=== PATIENT | female | born 1950 | race African-American/Black ===

== ENCOUNTER 2016-12-26 10:38 | Emergency (ER) | payer OTHER, MEDICAID ==
[2016-12-26 10:58] VITALS: BP 147/81; BMI 39.8
--- NOTE | 2016-12-26 11:20 | DR.GENAD ---
HPI - PCP Primary Care Physician: ben - HPI Comment HPI Comment: PATIENT SAID SHE WAS NOT ABLE TO GET OUT OF BED TODAY. SHE DID NOT LOOSE CONSCIOUSNESS. SHE IS DUE DIALYSIS TODAY. - Complaint/Symptoms Chief Complaint Doctors Comments: PATIENT FELL AT HOME LAST NIGHT IN THE SHOWER. PAIN LOWER EXTREMITIES, LOWER BACK, AND HEADACHE. Chief Complaint:: patient stated she fell in the shower yesterday and fell this morning so she called 911 this morning for ems to come and get her. patient has a dyalisis appointment today at 1130 - Nurses notes reviewed Nurses Notes Review: Yes - Source History Provided: Patient - Mode of Arrival Mode of Arrival: EMS - Timing Onset of Chief Complaint: 12/25/16 Came on: Suddenly - Duration Duration: Constant Duration: Hours - Severity Severity: Moderate PMH - PMH Past Medical History: Yes Past Medical History: Arthritis, CHF, Diabetes, Dialysis, Hypertension, Renal Disease Past Surgical History: Yes Surgical History: Hysterectomy - Family History History of Family Medical Conditions: Yes Family Medical History: Diabetes Mellitus, Cancer, [place], Hypertension - Social History Does patient currently use any type of tobacco product: No Have you used tobacco products in the last 12 months: No Type of Tobacco Use: None Does any household member use tobacco: No Alcohol Use: None Do you use any recreational Drugs:: No Lives With: Family Lives Where: Home - infectious screening In the last 2 months have you had wt loss of >10#?: NO Have you had fever, night sweats or hemotysis?: No Have you traveled outside the country in the last 6 months?: No Isolation: Standard ROS - Review of Systems Constitutional: Weakness, Fatigue. negative: Chills, Fever Eyes: No Symptoms Reported. negative: Eye Pain, Blurred Vision, Discharge ENTM: No Symptoms Reported. negative: Ear Pain, Nose Discharge, Nose Congestion , Throat Pain Respiratoy: Non-Productive Cough, Short of Breath. negative: Wheezing, Hemoptysis Cardiovascular: Edema. negative: Chest Pain Gastrointestinal/Abdominal: negative: Abdominal Pain, Nausea, Vomiting Genitourinary: Other (DECREASE URINATION DUE TO ESRD.). negative: Dysuria, Frequency, Hematuria Neurological: Headache, Weakness, Dizziness, Problems Walking Musculoskeletal: Back Pain, Right, Left, Pelvis, Hip, Leg, Knee, Ankle, Foot Integumentary: Change in Color, Bruises Hematologic/Lymphatic: Easy Bruising Endocrine: negative: Flushing, Increased Thirst, Increased Urine All Other Systems: Reviewed and Negative PE - Vital Signs Vitals: Temperature 98.7 F Pulse Rate 90 Respiratory Rate 18 Blood Pressure [Left Arm] 138/57 Blood Pressure 147/81 O2 Sat by Pulse Oximetry 100 - General Limitations: No Limitations General Appearance: Alert - Head Head Exam: Atraumatic - Eyes Eye exam: PERRL, EOMI. negative: Scleral Icterus, Conjunctival Injection, Periorbital Swelling, Periorbital Tenderness - ENT ENT Exam: Normal External Ear Exam External Ear Exam: Normal External Inspection TM/Canal Exam: Bilateral Normal Nose Exam: Normal Nose Exam Mouth Exam: Normal Inspection Throat Exam: Normal Inspection - Neck Neck Exam: Trachea Midline. negative: Tenderness, Meningismus, Lymphadenopathy - Chest Chest Inspection: Symmetric Chest Wall Rise - Respiratory Respiratory Exam: Respiratory Distress (MILD PATIENT ON HOME OXYGEN). negative : Chest Wall Tenderness Respiratory Exam: Bilateral Rhonchi, Lower Rhonchi - Cardiovascular Cardiovascular Exam: Regular Rate, Normal Rhythm, Normal Heart Sounds - Abdominal Exam Abdominal Exam: Normal Bowel Sounds, Soft. negative: Tenderness - Extremities Extremities Exam: Tenderness (LOWER EXTREMITIES TENDER), Edema - Back Back Exam: Paraspinal Tenderness (LOWER BACK) - Neurologic Neurological Exam: Alert, Oriented X3 - Psychiatric Psychiatric Exam: Normal Affect, Normal Mood - Skin Skin Exam: Erythema MDM - Additional Information Additional Information Obtained From: Family - Differential Diagnosis Differential Diagnosis: MULTIPLE CONTUSION AND SPRAIN, CLOSE HEAD YRAUMA, FRACTURE, WEAKNESS Course - Treatment Treatment: SEE ORDERS. - Education/Counseling Education/Counseling: Patient, Family, Education Educated On: Diagnosis, Needs for Follow Up ROR - Labs Reviewed Laboratory Results Reviewed?: Yes Result Diagrams: 12/26/16 11:55 12/26/16 11:55 Laboratory: WBC 4.6 X10^3/uL (3.6-10.0) 12/26/16 11:55 RBC 3.70 X10^6/uL (3.5-5.4) 12/26/16 11:55 Hgb 10.8 g/dL (12.0-16.0) L 12/26/16 11:55 Hct 33.3 % (36.0-47.0) L 12/26/16 11:55 MCV 90.2 fL (80.0-100.0) 12/26/16 11:55 MCH 29.2 pg (27.0-34.0) 12/26/16 11:55 MCHC 32.4 g/dL (33.0-35.0) L 12/26/16 11:55 RDW 14.9 % (11.6-16.5) 12/26/16 11:55 Plt Count 102 X10^3/uL (150.0-450.0) L 12/26/16 11:55 MPV 9.1 fL (7.4-11.0) 12/26/16 11:55 Neut % 80.6 % (42.0-75.0) H 12/26/16 11:55 Lymph % 8.6 % (21.0-51.0) L 12/26/16 11:55 [place] % 7.7 % (0.0-13.0) 12/26/16 11:55 Eos % 2.6 % (0.9-2.9) 12/26/16 11:55 Baso % 0.5 % (0.2-1.0) 12/26/16 11:55 Neut # 3.7 x10^3/uL (2.2-4.8) 12/26/16 11:55 Lymph # 0.4 X10^3/uL (1.3-2.9) L 12/26/16 11:55 [place] # 0.4 x10^3/uL (0.3-0.8) 12/26/16 11:55 Eos # 0.1 x10^3/uL (0.0-0.2) 12/26/16 11:55 Baso # 0.0 X10^3/uL (0.0-0.1) 12/26/16 11:55 Absolute Nucleated RBC 0.1 /100WBC 12/26/16 11:55 Sodium 139 mmol/L (136-145) 12/26/16 11:55 Corrected Sodium TNP 12/26/16 11:55 Potassium 5.1 mmol/L (3.5-5.1) 12/26/16 11:55 Chloride 100 mmol/L (98-107) 12/26/16 11:55 Carbon Dioxide 22.7 mmol/L (21-32) 12/26/16 11:55 BUN 64 mg/dL (7-18) H 12/26/16 11:55 Creatinine 12.82 mg/dL (0.55-1.02) H 12/26/16 11:55 Est GFR (MDRD) Af Amer 4 (>60) L 12/26/16 11:55 Est GFR (MDRD) Non-Af 3 (>60) L 12/26/16 11:55 Glucose 109 mg/dL (65-99) H 12/26/16 11:55 Calcium 8.2 mg/dL (8.5-10.1) L 12/26/16 11:55 Corrected Calcium TNP 12/26/16 11:55 Total Bilirubin 0.30 mg/dL (0.2-1.0) 12/26/16 11:55 AST 6 Units/L (15-37) L 12/26/16 11:55 ALT 18 Units/L (12-78) 12/26/16 11:55 Alkaline Phosphatase 52 Units/L (46-116) 12/26/16 11:55 Total Protein 7.6 g/dL (6.4-8.2) 12/26/16 11:55 Albumin 3.5 g/dL (3.4-5.0) 12/26/16 11:55 Globulin 4.1 g/dL (2.5-4.5) 12/26/16 11:55 Albumin/Globulin Ratio 0.9 Ratio (1.1-2.1) L 12/26/16 11:55 - XRAY XRAY Interpreted by: Radiologist XRAY Findings: REPORT DISCUSS WITH PATIENT AND FAMIOLY. - Diagnosis Discharge Problem: Multiple contusions, Multiple sprains, Muscle strain, multiple sites, Generalized weakness Headache, post-traumatic Qualifiers: Headache chronicity pattern: acute headache Intractability: not intractable Qualified Code(s): G44.319 - Acute post-traumatic headache, not intractable - Discharge Plan Disposition: 01 HOME, SELF-CARE Condition: Stable - Follow ups/Referrals Follow ups/Referrals: KAILEY BENJAMIN [Primary Care Provider] - 2 days - Instructions Instructions: Lumbosacral Strain, Muscle Strain, Musculoskeletal Pain Additional Instructions: RETURN TO ED IF WORSE. CONTINUE TRAMADOL FOR PAIN THAT YOU HAVE AT HOME.
[2016-12-26 12:08] LABS: BASOPHILS % (AUTO) 0.5 % (0.2-1.0); EOSINOPHILS # (AUTO) 0.1 x10^3/uL (0.0-0.2); EOSINOPHILS % (AUTO) 2.6 % (0.9-2.9); HEMATOCRIT 33.3 % (36.0-47.0); HEMOGLOBIN 10.8 g/dL (12.0-16.0); LYMPHOCYTES # (AUTO) 0.4 X10^3/uL (1.3-2.9); LYMPHOCYTES % (AUTO) 8.6 % (21.0-51.0); MEAN CORPUSCULAR HEMOGLOBIN 29.2 pg (27.0-34.0); MEAN CORPUSCULAR HGB CONC 32.4 g/dL (33.0-35.0); MEAN CORPUSCULAR VOLUME 90.2 fL (80.0-100.0); MEAN PLATELET VOLUME 9.1 fL (7.4-11.0); MONOCYTES # (AUTO) 0.4 x10^3/uL (0.3-0.8); MONOCYTES % (AUTO) 7.7 % (0.0-13.0); NEUTROPHILS # (AUTO) 3.7 x10^3/uL (2.2-4.8); NEUTROPHILS % (AUTO) 80.6 % (42.0-75.0); PLATELET COUNT 102 X10^3/uL (150.0-450.0); RED CELL DISTRIBUTION WIDTH 14.9 % (11.6-16.5); WHITE BLOOD COUNT 4.6 X10^3/uL (3.6-10.0)
[2016-12-26 12:22] LABS: ALANINE AMINOTRANSFERASE 18 Units/L (12-78); ALBUMIN 3.5 g/dL (3.4-5.0); ALKALINE PHOSPHATASE 52 Units/L (46-116); ASPARTATE AMINO TRANSFERASE 6 Units/L (15-37); BLOOD UREA NITROGEN 64 mg/dL (7-18); CALCIUM 8.2 mg/dL (8.5-10.1); CARBON DIOXIDE 22.7 mmol/L (21-32); CHLORIDE 100 mmol/L (98-107); CREATININE 12.82 mg/dL (0.55-1.02); GLUCOSE 109 mg/dL (65-99); SODIUM 139 mmol/L (136-145); TOTAL PROTEIN 7.6 g/dL (6.4-8.2); eGFR BLACK RACES 4 (>60); eGFR NON BLACK RACES 3 (>60)
--- NOTE | 2016-12-26 12:42 | CT ---
HISTORY: Head injury, fall Study: CT head without contrast Comparison: November 26, 2014 Technique: Axial non contrast images with coronal and sagittal reformats. Dose reduction procedures were used with MA/kv adjusted for body size. Findings: The ventricles are normal in size, shape, and position. There is decreased attenuation in the perive ntricular white matter suggestive of small vessel vascular disease. There is no definite evidence fo r recent or remote CVA, hemorrhage, or extra-axial fluid collection. In the right frontal region the re is a dense meningeal calcification measuring 6.6 millimeters and likely representing a densely ca lcified meningioma contributing no mass-effect. Additionally in the left occipital region there is a densely calcified nodule measuring 4.9 millimeters also likely a stable densely calcified meningiom a not contributing significant mass-effect. No significant mass lesions are identified. Once again n oted is ophthalmic vein dilatation and proptosis unchanged from the prior examination. Those sinuses visualized were clear. IMPRESSION: No acute intracranial abnormality Diffuse small vessel vascular disease. Sub centimeter densely calcified benign meningiomas in the right frontal and left occipital regions measuring only 6.6 and 4.9 millimeters respectively. These are likely not clinically significant. Proptosis bilaterally unchanged from the prior examination and of uncertain significance. Ophthalmol ogy evaluation may be indicated. Reported By:
--- NOTE | 2016-12-26 12:47 | RAD ---
HISTORY: Injury, fall, hip pain Study: AP pelvis Comparison: None Findings: A single frontal view of the pelvis demonstrates the pelvic ring to be intact. The SI joints are gr ossly unremarkable. The visualized portion of the right and left hip are normal in their appearance . No significant soft tissue abnormalities can be identified. IMPRESSION: 1. Negative exam. Reported By:
--- NOTE | 2016-12-26 12:48 | RAD ---
HISTORY: Injury, fall, low back pain Study: AP and lateral lumbar spine Comparison: None Findings: The alignment is normal. The vertebral bodies are of average height. No compression fractures are id entified. The disc spaces are preserved. The pedicles are intact. The SI joints are normal. IMPRESSION: No significant abnormality identified Reported By:
--- NOTE | 2016-12-26 12:49 | RAD ---
HISTORY: Injury, fall Study: Right femur two view Comparison: None Findings: No acute cortical disruption or dislocation can be identified. The femoral head and neck are unrema rkable in their appearance. No significant soft tissue swelling or injury can be seen. IMPRESSION: 1. Negative exam of the femur. Reported By:
--- NOTE | 2016-12-26 12:51 | RAD ---
HISTORY: Injury, fall, right leg pain Study: Right tibia and fibula two view Comparison: None Findings: Positioning is sub optimal. There is no definite evidence for fracture, lytic, or blastic lesion. No soft tissue abnormality or abnormal periosteal reaction is identified. IMPRESSION: No significant abnormality identified Reported By:
--- NOTE | 2016-12-26 12:54 | RAD ---
HISTORY: Injury, fall, left lower extremity pain Study: Left tibia and fibula two view Comparison: None Findings: The tibia and fibula are intact. No abnormal periosteal reaction or soft tissue abnormality is ident ified. There is ossification at the insertion of the Achilles tendon onto the calcaneus. There is a question of a fracture of this spur visualized best on the nonstandard AP view. This could be artifa ctual and due to rotation, however. Clinical correlation as to the presence of point tenderness over the insertion of the Achilles tendon should be helpful. IMPRESSION: Intact tibia and fibula Questionable fracture of a calcaneal spur at the insertion of the Achilles tendon. See recommendatio n as above Reported By:
--- NOTE | 2016-12-26 13:37 | RAD ---
Left femur-four views Indication: Fall with left leg pain. Findings: Partially visualized left knee joint shows degenerative change. Left hip is partially visu christy also show degenerative change. Impression: No displaced left femur fracture. Degenerative changes present. Reported By:
== END 2016-12-26 14:08 | disposition home or self-care (01) ==
LOC: ER 10:38
DX: T07 Unspecified multiple injuries (principal); T14.8 Other injury of unspecified body region; S39.012A Strain of muscle, fascia and tendon of lower back, initial encounter; R53.1 Weakness; G44.319 Acute post-traumatic headache, not intractable; W19.XXXA Unspecified fall, initial encounter; Y92.009 Unspecified place in unspecified non-institutional (private) residence as the place of occurrence of the external cause
CPT/HCPCS: 36415; 70450; 72100; 72170; 73552; 73590; 80053; 85025; 99283

== ENCOUNTER 2016-12-26 19:53 | Inpatient (IN) | payer OTHER, MEDICAID ==
--- NOTE | 2016-12-26 20:53 | DR.GENAD ---
HPI - PCP Primary Care Physician: JL - HPI Comment HPI Comment: PATIENT HERE VIA EMS FOR GENERALIZE WEAKNESS, FEVER AND CHILLS. CAME HOME FROM DIALYSIS AND STARTED HAVING CHILLS. SHE FELL AND CAME TO ED THIS AM. XRAY AND BLOOD WORK DONE. D/C HOME. DID HE DIALYSIS TODAY. - Complaint/Symptoms Chief Complaint Doctors Comments: FEVER, CHILLS AND GENERALIZE WEAKNESS. Chief Complaint:: EMS RESPONDED TO CALL FOR CHILLS. PATIENT BROUGHT IN BY EMS, C /O CHILLS , AND WEAKNESS. PATIENT WAS SEEN THIS AM, DISCHARGED AND WENT TO DIALYSIS. - Nurses notes reviewed Nurses Notes Review: Yes - Source History Provided: Patient, EMS - Mode of Arrival Mode of Arrival: EMS - Timing Onset of Chief Complaint: 12/26/16 Came on: Suddenly - Duration Duration: Constant Duration: Hours - Severity Severity: Moderate PMH - PMH Past Medical History: Yes Past Medical History: Arthritis, CHF, Diabetes, Dialysis, Hypertension, Renal Disease Past Surgical History: Yes Surgical History: Hysterectomy - Family History History of Family Medical Conditions: Yes Family Medical History: Diabetes Mellitus, Cancer, [place], Hypertension - Social History Does patient currently use any type of tobacco product: No Have you used tobacco products in the last 12 months: No Type of Tobacco Use: None Does any household member use tobacco: No Alcohol Use: None Do you use any recreational Drugs:: No Lives Where: Home - infectious screening Have you traveled outside the country in the last 6 months?: No Isolation: Standard ROS - Review of Systems Constitutional: Chills, Fever, Malaise, Weakness, Fatigue Eyes: No Symptoms Reported. negative: Eye Pain, Discharge ENTM: No Symptoms Reported. negative: Ear Pain, Nose Discharge, Nose Congestion , Throat Pain Respiratoy: Non-Productive Cough, Short of Breath, Wheezing. negative: Productive Cough, Hemoptysis Cardiovascular: No Symptoms Reported. negative: Chest Pain Gastrointestinal/Abdominal: No Symptoms Reported. negative: Constipation, Diarrhea, Nausea Genitourinary: No Symptoms Reported. negative: Dysuria, Frequency, Hematuria Neurological: Headache, Weakness, Dizziness, Problems Walking Musculoskeletal: Muscle Pain Integumentary: No Symptoms Reported Hematologic/Lymphatic: No Symptoms Reported Endocrine: negative: Flushing, Increased Thirst, Increased Urine All Other Systems: Reviewed and Negative PE - Vital Signs Vitals: Temperature 100.3 F Pulse Rate [Left Brachial] 92 Pulse Rate 100 Respiratory Rate 22 Blood Pressure [Left Arm] 142/71 Blood Pressure 149/60 O2 Sat by Pulse Oximetry 100 - General Limitations: No Limitations General Appearance: Alert - Head Head Exam: Normal Inspection - Eyes Eye exam: Normal Appearance - ENT ENT Exam: Normal External Ear Exam External Ear Exam: Normal External Inspection TM/Canal Exam: Bilateral Normal Nose Exam: Normal Nose Exam Mouth Exam: Normal Inspection Throat Exam: Normal Inspection - Neck Neck Exam: Trachea Midline - Chest Chest Inspection: Symmetric Chest Wall Rise - Respiratory Respiratory Exam: Normal Lung Sounds Bilat Respiratory Exam: Bilateral Wheezing, Bilateral Rhonchi, Lower Wheezing, Lower Rhonchi - Cardiovascular Cardiovascular Exam: Regular Rate, Normal Rhythm, Normal Heart Sounds - Abdominal Exam Abdominal Exam: Normal Bowel Sounds, Soft. negative: Tenderness - Back Back Exam: Tenderness - Neurologic Neurological Exam: Alert, Oriented X3 - Psychiatric Psychiatric Exam: Anxious - Skin Skin Exam: Normal Color MDM - Additional Information Additional Information Obtained From: Family - Differential Diagnosis Differential Diagnosis: GENERALIZE WEAKNESS, UTI, PNEUMONIA, BRONCHITIS, Course - Treatment Treatment: SEE ORDERS. - Consultation Consultation Comments: DISCUSS PATIENT WITH DR. HILL. HE WILL ADMIT PATIENT. - Education/Counseling Education/Counseling: Patient, Family, Education Educated On: Treatment, Diagnosis ROR - Labs Reviewed Laboratory Results Reviewed?: Yes Result Diagrams: 12/27/16 06:10 12/27/16 06:10 Laboratory: 12/26/16 21:35 Blood Blood Culture - Preliminary 12/26/16 21:15 Blood Blood Culture - Preliminary WBC 3.5 X10^3/uL (3.6-10.0) L 12/27/16 06:10 RBC 3.53 X10^6/uL (3.5-5.4) 12/27/16 06:10 Hgb 10.4 g/dL (12.0-16.0) L 12/27/16 06:10 Hct 31.7 % (36.0-47.0) L 12/27/16 06:10 MCV 89.9 fL (80.0-100.0) 12/27/16 06:10 MCH 29.6 pg (27.0-34.0) 12/27/16 06:10 MCHC 33.0 g/dL (33.0-35.0) 12/27/16 06:10 RDW 15.0 % (11.6-16.5) 12/27/16 06:10 Plt Count 94 X10^3/uL (150.0-450.0) L 12/27/16 06:10 MPV 9.4 fL (7.4-11.0) 12/27/16 06:10 Neut % 76.0 % (42.0-75.0) H 12/27/16 06:10 Lymph % 12.1 % (21.0-51.0) L 12/27/16 06:10 [place] % 9.9 % (0.0-13.0) 12/27/16 06:10 Eos % 1.2 % (0.9-2.9) 12/27/16 06:10 Baso % 0.8 % (0.2-1.0) 12/27/16 06:10 Neut # 2.7 x10^3/uL (2.2-4.8) 12/27/16 06:10 Lymph # 0.4 X10^3/uL (1.3-2.9) L 12/27/16 06:10 [place] # 0.4 x10^3/uL (0.3-0.8) 12/27/16 06:10 Eos # 0.0 x10^3/uL (0.0-0.2) 12/27/16 06:10 Baso # 0.0 X10^3/uL (0.0-0.1) 12/27/16 06:10 Absolute Nucleated RBC 0.1 /100WBC 12/27/16 06:10 INR Target Range - 12/27/16 06:10 INR 1.15 (0.8-1.3) 12/27/16 06:10 PTT 32.6 SECONDS (22.9-36.5) 12/27/16 06:10 PTT Comment - 12/27/16 06:10 Sodium 140 mmol/L (136-145) 12/27/16 06:10 Corrected Sodium 140 mmol/L (136-145) 12/27/16 06:10 Potassium 4.0 mmol/L (3.5-5.1) 12/27/16 06:10 Chloride 98 mmol/L (98-107) 12/27/16 06:10 Carbon Dioxide 30.2 mmol/L (21-32) 12/27/16 06:10 BUN 32 mg/dL (7-18) H 12/27/16 06:10 Creatinine 8.69 mg/dL (0.55-1.02) H 12/27/16 06:10 Est GFR (MDRD) Af Amer 6 (>60) L 12/27/16 06:10 Est GFR (MDRD) Non-Af 5 (>60) L 12/27/16 06:10 Glucose 118 mg/dL (65-99) H 12/27/16 06:10 Calcium 7.7 mg/dL (8.5-10.1) L 12/27/16 06:10 Corrected Calcium 8.3 mg/dL (8.5-10.1) L 12/27/16 06:10 Magnesium 1.9 mg/dL (1.7-2.9) 12/27/16 06:10 Total Bilirubin 0.40 mg/dL (0.2-1.0) 12/27/16 06:10 AST 11 Units/L (15-37) L 12/27/16 06:10 ALT 19 Units/L (12-78) 12/27/16 06:10 Alkaline Phosphatase 45 Units/L (46-116) L 12/27/16 06:10 Creatine Kinase 173 Units/L (26-192) 12/27/16 11:58 CK-MB (CK-2) 1.2 ng/mL (0-4.0) 12/27/16 11:58 CK/CKMB % Calc 0.7 % (<4) 12/27/16 11:58 Troponin I 0.02 ng/mL (0-1.5) 12/27/16 11:58 Total Protein 7.5 g/dL (6.4-8.2) 12/27/16 06:10 Albumin 3.3 g/dL (3.4-5.0) L 12/27/16 06:10 Globulin 4.2 g/dL (2.5-4.5) 12/27/16 06:10 Albumin/Globulin Ratio 0.8 Ratio (1.1-2.1) L 12/27/16 06:10 Triglycerides 169 mg/dL (0-150) H 12/27/16 06:10 Cholesterol 148 mg/dL (0-200) 12/27/16 06:10 LDL Cholesterol, Calc 82 mg/dL (0-100) 12/27/16 06:10 HDL Cholesterol 32 mg/dL (40-60) L 12/27/16 06:10 Cholesterol/HDL Ratio 4.6 (0.0-5.0) 12/27/16 06:10 Specimen Type Clean catch urine 12/27/16 19:38 Urine Color Yellow (YELLOW) 12/27/16 19:38 Urine Appearance Hazy (CLEAR) 12/27/16 19:38 Urine pH 5.0 (5.0 - 8.0) 12/27/16 19:38 Ur Specific [place] 1.020 (1.000-1.030) 12/27/16 19:38 Urine Protein 4+ (NEGATIVE) 12/27/16 19:38 Urine Glucose (UA) Negative (NEGATIVE) 12/27/16 19:38 Urine Ketones Negative (NEGATIVE) 12/27/16 19:38 Urine Occult Blood 5+ (NEGATIVE) 12/27/16 19:38 Urine Nitrite Negative (NEGATIVE) 12/27/16 19:38 Urine Bilirubin Negative (NEGATIVE) 12/27/16 19:38 Urine Urobilinogen Normal (NORMAL) 12/27/16 19:38 Ur Leukocyte Esterase 3+ (NEGATIVE) 12/27/16 19:38 Urine RBC 25-50 /HPF (NEGATIVE) 12/27/16 19:38 Urine WBC 6-10 /HPF (NEGATIVE) 12/27/16 19:38 Ur Squamous Epith Cells Few /HPF (NEGATIVE) 12/27/16 19:38 Urine Bacteria Trace /HPF (NEGATIVE) 12/27/16 19:38 Ur Culture Indicated? No/not indicated 12/27/16 19:38 Influenza A (H1N1) PCR Not detected (NOT DETECT) 12/27/16 10:17 Influenza Type A (PCR) Positive (NEGATIVE) A 12/27/16 10:17 Influenza Type B (PCR) Negative (NEGATIVE) 12/27/16 10:17 - XRAY XRAY Interpreted by: Radiologist XRAY Findings: REPORT NOTED - EKG Rhythm: NSR (EKG NOTED) - Diagnosis Discharge Problem: Generalized weakness, Chills Fever Qualifiers: Fever type: due to other condition Qualified Code(s): R50.81 - Fever presenting with conditions classified elsewhere - Discharge Plan Disposition: 09 ADMITTED INPATIENT Condition: Stable - Follow ups/Referrals - Instructions
[2016-12-26 21:00] LABS: BASOPHILS % (AUTO) 0.4 % (0.2-1.0); EOSINOPHILS # (AUTO) 0.1 x10^3/uL (0.0-0.2); EOSINOPHILS % (AUTO) 1.7 % (0.9-2.9); HEMATOCRIT 37.9 % (36.0-47.0); HEMOGLOBIN 12.4 g/dL (12.0-16.0); LYMPHOCYTES # (AUTO) 0.4 X10^3/uL (1.3-2.9); LYMPHOCYTES % (AUTO) 8.2 % (21.0-51.0); MEAN CORPUSCULAR HEMOGLOBIN 29.6 pg (27.0-34.0); MEAN CORPUSCULAR HGB CONC 32.7 g/dL (33.0-35.0); MEAN CORPUSCULAR VOLUME 90.5 fL (80.0-100.0); MEAN PLATELET VOLUME 9.6 fL (7.4-11.0); MONOCYTES # (AUTO) 0.3 x10^3/uL (0.3-0.8); MONOCYTES % (AUTO) 7.4 % (0.0-13.0); NEUTROPHILS # (AUTO) 3.7 x10^3/uL (2.2-4.8); NEUTROPHILS % (AUTO) 82.3 % (42.0-75.0); PLATELET COUNT 121 X10^3/uL (150.0-450.0); RED BLOOD COUNT 4.19 X10^6/uL (3.5-5.4); RED CELL DISTRIBUTION WIDTH 15.1 % (11.6-16.5); WHITE BLOOD COUNT 4.5 X10^3/uL (3.6-10.0)
[2016-12-26 21:12] LABS: BLOOD UREA NITROGEN 27 mg/dL (7-18); CALCIUM 8.4 mg/dL (8.5-10.1); CARBON DIOXIDE 30.9 mmol/L (21-32); CHLORIDE 97 mmol/L (98-107); CREATININE 7.15 mg/dL (0.55-1.02); GLUCOSE 110 mg/dL (65-99); SODIUM 141 mmol/L (136-145); TROPONIN I < 0.02 ng/mL (0-1.5); eGFR BLACK RACES 7 (>60); eGFR NON BLACK RACES 6 (>60)
[2016-12-26 21:16] LABS: ALANINE AMINOTRANSFERASE 24 Units/L (12-78); ALBUMIN 4.1 g/dL (3.4-5.0); ALKALINE PHOSPHATASE 60 Units/L (46-116); ASPARTATE AMINO TRANSFERASE 11 Units/L (15-37); CKMB % 0.8 % (<4); CREATINE KINASE 146 Units/L (26-192); CREATINE KINASE MB 1.1 ng/mL (0-4.0); TOTAL PROTEIN 8.9 g/dL (6.4-8.2)
[2016-12-26] MEDS ORDERED: ROCEPHIN VIAL 1 GM 1 GM in NS 50 ML IV + SPIKE MINIBAG* 50 ML IV ONE (23:29)
[2016-12-26] MEDS ORDERED: NS 250 ML IV 250 ML IV ONE (23:49)
[2016-12-26] MEDS ORDERED: ROCEPHIN 1 GM IV PREMIX * OUT OF STOCK 50 ML IV ONE (23:49)
--- NOTE | 2016-12-26 23:54 | RAD ---
Chest, one view Indication: Chest pain, shortness of breath. Comparison: 02/11/2015 Findings: Mild cardiac silhouette enlargement is unchanged. There is mild pulmonary vascular congest ion, without overt edema, dense infiltrate, or large effusion. The bony thorax is unremarkable. Impression: Stable cardiomegaly without evidence for edema or other acute chest process. Reported By:
[2016-12-27 01:11] LABS: CKMB % 0.7 % (<4); CREATINE KINASE 147 Units/L (26-192); CREATINE KINASE MB < 1.0 ng/mL (0-4.0); TROPONIN I 0.02 ng/mL (0-1.5)
[2016-12-27 02:01] VITALS: BMI 48.9
[2016-12-27] MEDS: ROBITUSSIN DM PO PRN ×2 (05:00→14:08)
[2016-12-27] MEDS: TYLENOL 325 MG TAB PO PRN ×2 (05:14→20:07)
[2016-12-27] MEDS: NS 1000 ML 1,000 ML IV SCH ×2 (05:30→14:06)
[2016-12-27 06:32] LABS: BASOPHILS % (AUTO) 0.8 % (0.2-1.0); EOSINOPHILS % (AUTO) 1.2 % (0.9-2.9); HEMATOCRIT 31.7 % (36.0-47.0); HEMOGLOBIN 10.4 g/dL (12.0-16.0); LYMPHOCYTES # (AUTO) 0.4 X10^3/uL (1.3-2.9); LYMPHOCYTES % (AUTO) 12.1 % (21.0-51.0); MEAN CORPUSCULAR HEMOGLOBIN 29.6 pg (27.0-34.0); MEAN CORPUSCULAR VOLUME 89.9 fL (80.0-100.0); MEAN PLATELET VOLUME 9.4 fL (7.4-11.0); MONOCYTES # (AUTO) 0.4 x10^3/uL (0.3-0.8); MONOCYTES % (AUTO) 9.9 % (0.0-13.0); NEUTROPHILS # (AUTO) 2.7 x10^3/uL (2.2-4.8); PLATELET COUNT 94 X10^3/uL (150.0-450.0); RED BLOOD COUNT 3.53 X10^6/uL (3.5-5.4); WHITE BLOOD COUNT 3.5 X10^3/uL (3.6-10.0)
[2016-12-27 06:33] LABS: ALBUMIN 3.3 g/dL (3.4-5.0); CALCIUM 7.7 mg/dL (8.5-10.1); CARBON DIOXIDE 30.2 mmol/L (21-32); CHOL/HDL RATIO 4.6 (0.0-5.0); COR CA(FOR HYPOALB) 8.3 mg/dL (8.5-10.1); CREATININE 8.69 mg/dL (0.55-1.02); MAGNESIUM 1.9 mg/dL (1.7-2.9); TOTAL PROTEIN 7.5 g/dL (6.4-8.2)
[2016-12-27 06:41] LABS: CKMB % 0.6 % (<4); TROPONIN I 0.02 ng/mL (0-1.5)
[2016-12-27] MEDS ORDERED: ULTRAM PO PRN (08:57)
[2016-12-27] MEDS ORDERED: XANAX PO PRN (08:57)
[2016-12-27] MEDS ORDERED: [UNRECOGNIZED DRUG - OTHER] PO SCH (09:00)
[2016-12-27] MEDS ORDERED: [UNRECOGNIZED DRUG - OTHER] PO SCH (09:00)
[2016-12-27] MEDS ORDERED: [UNRECOGNIZED DRUG - OTHER] PO SCH (09:00)
[2016-12-27] MEDS: PEPCID TAB 20 MG PO SCH (09:56)
[2016-12-27] MEDS: PHOSLO CAP 667 MG PO SCH ×3 (09:56→21:02)
[2016-12-27] MEDS: NEURONTIN CAP 100 MG PO SCH ×2 (09:56→20:03)
[2016-12-27] MEDS: LOPRESSOR TAB 25 MG PO SCH ×2 (09:56→20:03)
[2016-12-27] MEDS: FOLIC ACID TAB 1 MG PO SCH ×4 (09:57→20:03)
[2016-12-27] MEDS: NEPHRO-VITE RX PO SCH (09:57)
[2016-12-27] MEDS: LASIX PO SCH ×2 (09:57→20:03)
[2016-12-27] MEDS: COLACE CAP 100 MG PO SCH (09:57)
[2016-12-27] MEDS ORDERED: SENSIPAR PO SCH (10:00)
[2016-12-27] MEDS: SENSIPAR PO SCH ×2 (11:33→16:20)
[2016-12-27] MEDS: [UNRECOGNIZED DRUG - OTHER] PO SCH ×2 (11:33→16:25)
[2016-12-27] MEDS: TAMIFLU PO SCH ×2 (12:54→20:03)
[2016-12-27 13:19] LABS: CKMB % 0.7 % (<4); CREATINE KINASE MB 1.2 ng/mL (0-4.0); TROPONIN I 0.02 ng/mL (0-1.5)
[2016-12-27 19:56] LABS: BILIRUBIN,URINE NEGATIVE (NEGATIVE); BLOOD/HEMOGLOBIN,URINE 5+ (NEGATIVE); GLUCOSE, URINE NEGATIVE (NEGATIVE); KETONES,URINE NEGATIVE (NEGATIVE); LEUKOCYTE ESTERASE ,URINE 3+ (NEGATIVE); NITRITES,URINE NEGATIVE (NEGATIVE); PROTEIN,URINE 4+ (NEGATIVE); UROBILINOGEN,URINE NORMAL (NORMAL)
[2016-12-27] MEDS ORDERED: SNACK - Diabetic Appropriate PO SCH (20:00)
[2016-12-27 20:05] LABS: APPEARANCE,URINE HAZY (CLEAR); BACTERIA,URINE TRACE /HPF (NEGATIVE); COLOR,URINE YELLOW (YELLOW); RBC,URINE 25-50 /HPF (NEGATIVE); SQUAMOUS EPITHELIAL CELL,UR FEW /HPF (NEGATIVE)
[2016-12-27] MEDS: HumuLIN R SC PRN (20:28)
[2016-12-28] MEDS: ROBITUSSIN DM PO PRN (02:40)
[2016-12-28] MEDS: HumuLIN R SC PRN (05:55)
[2016-12-28] MEDS: PHOSLO CAP 667 MG PO SCH (05:56)
[2016-12-28] MEDS: [UNRECOGNIZED DRUG - OTHER] PO SCH (05:59)
[2016-12-28] MEDS: COLACE CAP 100 MG PO SCH (08:20)
[2016-12-28] MEDS: NEPHRO-VITE RX PO SCH (08:27)
[2016-12-28] MEDS: LOPRESSOR TAB 25 MG PO SCH (08:27)
[2016-12-28] MEDS: PEPCID TAB 20 MG PO SCH (08:27)
[2016-12-28] MEDS: LASIX PO SCH (08:27)
[2016-12-28] MEDS: FOLIC ACID TAB 1 MG PO SCH (08:27)
[2016-12-28] MEDS: NEURONTIN CAP 100 MG PO SCH (08:27)
[2016-12-28] MEDS: TAMIFLU PO SCH (08:27)
[2016-12-28 08:44] VITALS: BP 116/49
== END 2016-12-28 12:50 | disposition home or self-care (01) | DRG 195 ==
LOC: ER 19:57 → ICU 12-27 00:06
PROVIDERS: ADMIT Obstetrics & Gynecology Obstetrics; ATTEND Obstetrics & Gynecology Obstetrics
DX: J10.1 Influenza due to other identified influenza virus with other respiratory manifestations (principal); R50.81 Fever presenting with conditions classified elsewhere; R53.83 Other fatigue; R53.1 Weakness; Z99.2 Dependence on renal dialysis; M13.89 Other specified arthritis, multiple sites; E11.65 Type 2 diabetes mellitus with hyperglycemia; I10 Essential (primary) hypertension; Z91.81 History of falling; R94.4 Abnormal results of kidney function studies; R26.89 Other abnormalities of gait and mobility; R94.31 Abnormal electrocardiogram [ECG] [EKG]
CPT/HCPCS: 36415; 51702; 70450; 71010; 72100; 72170; 73552; 73590; 80053; 80061; 81001; 82550; 82553; 83735; 84484; 85025; 85610; 85730; 87040; 87502; 87503; 93005; 93010; 96365; 96374; 99283; 99284; A4222; G9035; J0696; J1815

== ENCOUNTER 2016-12-28 19:55 | Emergency (ER) | payer OTHER, MEDICAID ==
[2016-12-28 20:08] VITALS: BMI 50.8
[2016-12-28] MEDS ORDERED: TYLENOL 500 MG TAB EXTRA STRENGTH PO ONE (20:44)
--- NOTE | 2016-12-28 20:44 | DR.GENAD ---
HPI - PCP Primary Care Physician: MICKY - Complaint/Symptoms Chief Complaint:: WEAK, DROWSY - Nurses notes reviewed Nurses Notes Review: Yes - Source History Provided: Patient, EMS - Mode of Arrival Mode of Arrival: EMS - Timing Onset of Chief Complaint: 12/28/16 Came on: Suddenly - Duration Duration: Hours - Severity Severity: Moderate PMH - PMH Past Medical History: Yes Past Medical History: Arthritis, CHF, Diabetes, Dialysis, Hypertension, Renal Disease Past Surgical History: Yes Surgical History: Hysterectomy - Family History History of Family Medical Conditions: Yes Family Medical History: Diabetes Mellitus, Cancer, CT, Hypertension - Social History Type of Tobacco Use: None Alcohol Use: None Do you use any recreational Drugs:: No Lives Where: Home - infectious screening Have you traveled outside the country in the last 6 months?: No Isolation: Standard ROS - Review of Systems Constitutional: Fever, Weakness, Fatigue Eyes: No Symptoms Reported. negative: Eye Pain, Discharge ENTM: No Symptoms Reported, Nose Congestion. negative: Ear Pain, Nose Discharge , Throat Pain Respiratoy: Non-Productive Cough, Short of Breath. negative: Productive Cough, Wheezing, Hemoptysis Cardiovascular: Chest Pain, Edema PE - Vital Signs Vitals: Temperature 98.6 F Pulse Rate [Left Brachial] 75 Pulse Rate [Sitting] 80 Pulse Rate [Lying] 76 Pulse Rate 76 Respiratory Rate 18 Blood Pressure [Left Arm] 111/55 Blood Pressure [Sitting] 118/65 Blood Pressure [Lying] 108/50 Blood Pressure 112/53 O2 Sat by Pulse Oximetry 100 ROR - Labs Reviewed Result Diagrams: 12/28/16 21:00 12/28/16 21:00 Laboratory: WBC 4.6 X10^3/uL (3.6-10.0) 12/28/16 21:00 RBC 3.87 X10^6/uL (3.5-5.4) 12/28/16 21:00 Hgb 11.4 g/dL (12.0-16.0) L 12/28/16 21:00 Hct 35.4 % (36.0-47.0) L 12/28/16 21:00 MCV 91.6 fL (80.0-100.0) 12/28/16 21:00 MCH 29.6 pg (27.0-34.0) 12/28/16 21:00 MCHC 32.3 g/dL (33.0-35.0) L 12/28/16 21:00 RDW 14.9 % (11.6-16.5) 12/28/16 21:00 Plt Count 110 X10^3/uL (150.0-450.0) L 12/28/16 21:00 Plt Count Comment Adequate (ADEQUATE) 12/28/16 21:00 MPV 10.1 fL (7.4-11.0) 12/28/16 21:00 Neut % 64.8 % (42.0-75.0) 12/28/16 21:00 Lymph % 18.2 % (21.0-51.0) L 12/28/16 21:00 [place] % 11.4 % (0.0-13.0) 12/28/16 21:00 Eos % 4.8 % (0.9-2.9) H 12/28/16 21:00 Baso % 0.8 % (0.2-1.0) 12/28/16 21:00 Neut # 2.6 x10^3/uL (2.2-4.8) 12/28/16 21:00 Lymph # 0.7 X10^3/uL (1.3-2.9) L 12/28/16 21:00 [place] # 0.5 x10^3/uL (0.3-0.8) 12/28/16 21:00 Eos # 0.2 x10^3/uL (0.0-0.2) 12/28/16 21:00 Baso # 0.0 X10^3/uL (0.0-0.1) 12/28/16 21:00 Absolute Nucleated RBC 0.1 /100WBC 12/28/16 21:00 Plt Morphology Comment Normal (NORMAL) 12/28/16 21:00 RBC Morphology Normal (NORMAL) 12/28/16 21:00 Sodium 138 mmol/L (136-145) 12/28/16 21:00 Corrected Sodium 139 mmol/L (136-145) 12/28/16 21:00 Potassium 4.5 mmol/L (3.5-5.1) 12/28/16 21:00 Chloride 95 mmol/L (98-107) L 12/28/16 21:00 Carbon Dioxide 27.7 mmol/L (21-32) 12/28/16 21:00 BUN 39 mg/dL (7-18) H 12/28/16 21:00 Creatinine 9.20 mg/dL (0.55-1.02) H 12/28/16 21:00 Est GFR (MDRD) Af Amer 5 (>60) L 12/28/16 21:00 Est GFR (MDRD) Non-Af 5 (>60) L 12/28/16 21:00 Glucose 128 mg/dL (65-99) H 12/28/16 21:00 Calcium 8.2 mg/dL (8.5-10.1) L 12/28/16 21:00 Corrected Calcium TNP 12/28/16 21:00 Total Bilirubin 0.50 mg/dL (0.2-1.0) 12/28/16 21:00 AST 30 Units/L (15-37) 12/28/16 21:00 ALT 32 Units/L (12-78) 12/28/16 21:00 Alkaline Phosphatase 55 Units/L (46-116) 12/28/16 21:00 Total Protein 8.8 g/dL (6.4-8.2) H 12/28/16 21:00 Albumin 3.9 g/dL (3.4-5.0) 12/28/16 21:00 Globulin 4.9 g/dL (2.5-4.5) H 12/28/16 21:00 Albumin/Globulin Ratio 0.8 Ratio (1.1-2.1) L 12/28/16 21:00 - Discharge Plan Disposition: HOME, SELF-CARE Condition: Stable - Follow ups/Referrals Follow ups/Referrals: KAILEY BENJAMIN [Primary Care Provider] - 3 days - Instructions Instructions: Influenza, Adult, [id number], Fever, Adult, [id number] Additional Instructions: FOLLOW UP WITH PCP TOMORROW OR AT EARLIEST CONVENIENCE . FOLLOW UP WITH . CONTINUE WITH TYLENOL THREE TIMES A DAY, AND PRESCRIPTION FOR TAMIFLU. CONTINUE TO REST WITH DIAGNOSIS OF INFLUENZA.
[2016-12-28] MEDS ORDERED: TYLENOL 500 MG TAB EXTRA STRENGTH ONE (20:46)
[2016-12-28 21:22] LABS: BASOPHILS % (AUTO) 0.8 % (0.2-1.0); EOSINOPHILS # (AUTO) 0.2 x10^3/uL (0.0-0.2); EOSINOPHILS % (AUTO) 4.8 % (0.9-2.9); HEMATOCRIT 35.4 % (36.0-47.0); HEMOGLOBIN 11.4 g/dL (12.0-16.0); LYMPHOCYTES # (AUTO) 0.7 X10^3/uL (1.3-2.9); LYMPHOCYTES % (AUTO) 18.2 % (21.0-51.0); MEAN CORPUSCULAR HEMOGLOBIN 29.6 pg (27.0-34.0); MEAN CORPUSCULAR HGB CONC 32.3 g/dL (33.0-35.0); MEAN CORPUSCULAR VOLUME 91.6 fL (80.0-100.0); MEAN PLATELET VOLUME 10.1 fL (7.4-11.0); MONOCYTES # (AUTO) 0.5 x10^3/uL (0.3-0.8); MONOCYTES % (AUTO) 11.4 % (0.0-13.0); NEUTROPHILS # (AUTO) 2.6 x10^3/uL (2.2-4.8); NEUTROPHILS % (AUTO) 64.8 % (42.0-75.0); PLATELET COUNT 110 X10^3/uL (150.0-450.0); RED BLOOD COUNT 3.87 X10^6/uL (3.5-5.4); RED CELL DISTRIBUTION WIDTH 14.9 % (11.6-16.5)
[2016-12-28 21:27] LABS: ALANINE AMINOTRANSFERASE 32 Units/L (12-78); ALBUMIN 3.9 g/dL (3.4-5.0); ALKALINE PHOSPHATASE 55 Units/L (46-116); ASPARTATE AMINO TRANSFERASE 30 Units/L (15-37); BLOOD UREA NITROGEN 39 mg/dL (7-18); CALCIUM 8.2 mg/dL (8.5-10.1); CARBON DIOXIDE 27.7 mmol/L (21-32); CHLORIDE 95 mmol/L (98-107); COR NA(FOR HYPERGLY) 139 mmol/L (136-145); GLUCOSE 128 mg/dL (65-99); SODIUM 138 mmol/L (136-145); TOTAL PROTEIN 8.8 g/dL (6.4-8.2); eGFR BLACK RACES 5 (>60); eGFR NON BLACK RACES 5 (>60)
[2016-12-28 21:32] LABS: PLATELET MORPHOLOGY COMMENT NORMAL (NORMAL); WHITE BLOOD COUNT 4.6 X10^3/uL (3.6-10.0)
[2016-12-28 22:04] VITALS: BP 111/55
== END 2016-12-28 22:07 | disposition home or self-care (01) ==
LOC: ER 20:02
DX: J11.1 Influenza due to unidentified influenza virus with other respiratory manifestations (principal); R50.9 Fever, unspecified; R53.1 Weakness
CPT/HCPCS: 36415; 80053; 85025; 99283

== ENCOUNTER 2017-01-31 09:07 | Emergency (ER) | payer OTHER, MEDICAID ==
[2017-01-31 09:19] VITALS: BP 122/60; BMI 46.4
--- NOTE | 2017-01-31 09:27 | ED.ABDFE ---
HPI - Time seen Time seen: 09:24 - PCP Primary Care Physician: Vincent - Complaint Chief Complaint:: Pt is c/o lower abdominal pain and states that when she eats it goes right through her. - Nurses notes reviewed Nurses Notes Review: Yes - Source History Provided: Patient - Mode of arrival Mode of Arrival: Stretcher - Timing Onset of Chief Complaint: 01/29/17 Came on: Gradually - Duration Duration: Intermittent How lon Duration: Days - Location Location: [facility] - Severity Severity: Mild - Quality Quality: Cramping - Context Onset: Gradually - Modifying Worsening Factors: Food - Associated signs and symptoms Associated Signs and Symptoms: None PMH - PMH Past Medical History: Yes Past Medical History: Arthritis, CHF, Diabetes, Dialysis, Hypertension, Renal Disease Past Surgical History: Yes Surgical History: Hysterectomy - Family History History of Family Medical Conditions: Yes Family Medical History: Diabetes Mellitus, Cancer, [place], Hypertension - Social History Does patient currently use any type of tobacco product: No Have you used tobacco products in the last 12 months: No Type of Tobacco Use: None Does any household member use tobacco: No Alcohol Use: None Do you use any recreational Drugs:: No Lives With: Alone Lives Where: Home - infectious screening In the last 2 months have you had wt loss of >10#?: NO Have you had fever, night sweats or hemotysis?: No Have you traveled outside the country in the last 6 months?: No Isolation: Standard ROS - Review of Systems Constitutional: No Symptoms Reported Eyes: No Symptoms Reported ENTM: No Symptoms Reported Respiratoy: No Symptoms Reported Cardiovascular: No Symptoms Reported Gastrointestinal/Abdominal: Diarrhea Neurological: No Symptoms Reported Musculoskeletal: No Symptoms Reported Integumentary: No Symptoms Reported Hematologic/Lymphatic: No Symptoms Reported Endocrine: No Symptoms Reported Psychiatric: No Symptoms Reported PE - Vital Signs Vitals: Temperature 98.3 F Pulse Rate 81 Respiratory Rate 20 Blood Pressure [Left Arm] 111/55 Blood Pressure [Sitting] 118/65 Blood Pressure [Lying] 108/50 Blood Pressure 122/60 O2 Sat by Pulse Oximetry 99 - General Limitations: No Limitations General Appearance: Alert, In No Apparent Distress - Head Head Exam: Normal Inspection - Eyes Eye exam: Normal Appearance, EOMI. negative: Scleral Icterus, Conjunctival Injection - ENT ENT Exam: Normal Exam, Normal Oropharynx - Neck Neck Exam: Normal Inspection - Chest Chest Inspection: Normal Inspection - Respiratory Respiratory Exam: Normal Lung Sounds Bilat. negative: Accessory Muscle Use, Respiratory Distress Respiratory Exam: Bilateral Clear to Auscultation - Cardiovascular Cardiovascular Exam: Regular Rate - Abdominal Exam Abdominal Exam: Distention (obese) Abdominal Tenderness: RLQ, LUQ - Extremeties Extremities Exam: negative: Full ROM (obesity limits ROM, shunt in left arm) - Neurologic Neurological Exam: Alert, Oriented X3, CN II-XII Intact - Psychiatric Psychiatric Exam: Normal Mood - Skin Skin Exam: Intact, Normal Color ROR - Labs Reviewed Result Diagrams: 01/31/17 09:50 01/31/17 09:50 Laboratory: WBC 9.0 X10^3/uL (3.6-10.0) 01/31/17 09:50 RBC 3.82 X10^6/uL (3.5-5.4) 01/31/17 09:50 Hgb 11.3 g/dL (12.0-16.0) L 01/31/17 09:50 Hct 34.6 % (36.0-47.0) L 01/31/17 09:50 MCV 90.6 fL (80.0-100.0) 01/31/17 09:50 MCH 29.5 pg (27.0-34.0) 01/31/17 09:50 MCHC 32.5 g/dL (33.0-35.0) L 01/31/17 09:50 RDW 15.2 % (11.6-16.5) 01/31/17 09:50 Plt Count 162 X10^3/uL (150.0-450.0) 01/31/17 09:50 MPV 9.5 fL (7.4-11.0) 01/31/17 09:50 Neut % 78.5 % (42.0-75.0) H 01/31/17 09:50 Lymph % 13.0 % (21.0-51.0) L 01/31/17 09:50 [place] % 5.8 % (0.0-13.0) 01/31/17 09:50 Eos % 2.1 % (0.9-2.9) 01/31/17 09:50 Baso % 0.6 % (0.2-1.0) 01/31/17 09:50 Neut # 7.0 x10^3/uL (2.2-4.8) H 01/31/17 09:50 Lymph # 1.2 X10^3/uL (1.3-2.9) L 01/31/17 09:50 [place] # 0.5 x10^3/uL (0.3-0.8) 01/31/17 09:50 Eos # 0.2 x10^3/uL (0.0-0.2) 01/31/17 09:50 Baso # 0.1 X10^3/uL (0.0-0.1) 01/31/17 09:50 Absolute Nucleated RBC 0.0 /100WBC 01/31/17 09:50 Sodium 139 mmol/L (136-145) 01/31/17 09:50 Corrected Sodium 140 mmol/L (136-145) 01/31/17 09:50 Potassium 4.1 mmol/L (3.5-5.1) 01/31/17 09:50 Chloride 95 mmol/L (98-107) L 01/31/17 09:50 Carbon Dioxide 33.5 mmol/L (21-32) H 01/31/17 09:50 BUN 32 mg/dL (7-18) H 01/31/17 09:50 Creatinine 9.34 mg/dL (0.55-1.02) H 01/31/17 09:50 Est GFR (MDRD) Af Amer 5 (>60) L 01/31/17 09:50 Est GFR (MDRD) Non-Af 4 (>60) L 01/31/17 09:50 Glucose 141 mg/dL (65-99) H 01/31/17 09:50 Calcium 8.5 mg/dL (8.5-10.1) 01/31/17 09:50 Stool for White Cells No wbc's seen (None) 01/31/17 09:50 - Diagnosis Discharge Problem: Diarrhea Qualifiers: Diarrhea type: unspecified type Qualified Code(s): R19.7 - Diarrhea, unspecified - Discharge Plan Condition: Stable Prescriptions: Bismuth Subsalicylate [Kaopectate (New Formula)] 30 ml PO TID PRN #240 ml PRN Reason: - Follow ups/Referrals Follow ups/Referrals: NFD,None [Primary Care Provider] - 3 days - Instructions
[2017-01-31 10:11] LABS: BASOPHILS # (AUTO) 0.1 X10^3/uL (0.0-0.1); BASOPHILS % (AUTO) 0.6 % (0.2-1.0); EOSINOPHILS # (AUTO) 0.2 x10^3/uL (0.0-0.2); EOSINOPHILS % (AUTO) 2.1 % (0.9-2.9); HEMATOCRIT 34.6 % (36.0-47.0); HEMOGLOBIN 11.3 g/dL (12.0-16.0); LYMPHOCYTES # (AUTO) 1.2 X10^3/uL (1.3-2.9); MEAN CORPUSCULAR HEMOGLOBIN 29.5 pg (27.0-34.0); MEAN CORPUSCULAR HGB CONC 32.5 g/dL (33.0-35.0); MEAN CORPUSCULAR VOLUME 90.6 fL (80.0-100.0); MEAN PLATELET VOLUME 9.5 fL (7.4-11.0); MONOCYTES # (AUTO) 0.5 x10^3/uL (0.3-0.8); MONOCYTES % (AUTO) 5.8 % (0.0-13.0); NEUTROPHILS % (AUTO) 78.5 % (42.0-75.0); PLATELET COUNT 162 X10^3/uL (150.0-450.0); RED BLOOD COUNT 3.82 X10^6/uL (3.5-5.4); RED CELL DISTRIBUTION WIDTH 15.2 % (11.6-16.5)
[2017-01-31 10:16] LABS: CALCIUM 8.5 mg/dL (8.5-10.1); CARBON DIOXIDE 33.5 mmol/L (21-32); CREATININE 9.34 mg/dL (0.55-1.02)
== END 2017-01-31 11:10 | disposition home or self-care (01) ==
LOC: ER 09:07
DX: R19.7 Diarrhea, unspecified (principal)
CPT/HCPCS: 36415; 80048; 85025; 87045; 87205; 87899; 99282; A4222

== ENCOUNTER 2017-07-26 08:24 | Emergency (ER) | payer OTHER, MEDICAID ==
[2017-07-26 08:37] VITALS: BP 130/67; BMI 92.2
--- NOTE | 2017-07-26 08:45 | DR.GENAD ---
HPI - PCP Primary Care Physician: Vincent - HPI Comment HPI Comment: HISTORY BELOW. DIALYSIS PATIENT DUE DIALYSIS TODAY. - Complaint/Symptoms Chief Complaint Doctors Comments: INCREASING SOB AND CHEST PAIN TIMES ONE DAY. WORSE THIS AM. LOWGRADE FEVER PRESENT. Chief Complaint:: "Im having trouble breating today" "I think i have the flu" - Nurses notes reviewed Nurses Notes Review: Yes - Source History Provided: Patient, EMS - Mode of Arrival Mode of Arrival: Stretcher - Timing Onset of Chief Complaint: 07/26/17 Came on: Suddenly - Duration Duration: Constant Duration: Days - Severity Severity: Moderate PMH - PMH Past Medical History: Yes Past Medical History: Arthritis, CHF, Diabetes, Dialysis, Hypertension, Renal Disease Past Surgical History: Yes Surgical History: Hysterectomy - Family History History of Family Medical Conditions: Yes Family Medical History: Diabetes Mellitus, Cancer, [place], Hypertension - Social History Does patient currently use any type of tobacco product: No Have you used tobacco products in the last 12 months: No Type of Tobacco Use: None Does any household member use tobacco: No Alcohol Use: None Do you use any recreational Drugs:: No Lives With: Family Lives Where: Home - infectious screening In the last 2 months have you had wt loss of >10#?: NO Have you had fever, night sweats or hemotysis?: No Have you traveled outside the country in the last 6 months?: No Isolation: Standard ROS - Review of Systems Constitutional: No Symptoms Reported, Fever, Weakness, Fatigue Eyes: No Symptoms Reported. negative: Eye Pain, Discharge ENTM: Nose Discharge, Nose Congestion, Throat Pain. negative: Ear Pain Respiratoy: Productive Cough, Short of Breath, Wheezing Cardiovascular: Chest Pain Gastrointestinal/Abdominal: No Symptoms Reported Genitourinary: No Symptoms Reported Neurological: No Symptoms Reported Musculoskeletal: No Symptoms Reported Integumentary: No Symptoms Reported Hematologic/Lymphatic: No Symptoms Reported Endocrine: No Symptoms Reported All Other Systems: Reviewed and Negative PE - Vital Signs Vitals: Temperature 100.4 F Pulse Rate 81 Respiratory Rate 18 Blood Pressure [Left Arm] 111/55 Blood Pressure [Sitting] 118/65 Blood Pressure [Lying] 108/50 Blood Pressure 130/67 O2 Sat by Pulse Oximetry 97 - General Limitations: No Limitations General Appearance: Alert, In Distress - Head Head Exam: Normal Inspection - Eyes Eye exam: Normal Appearance, PERRL, EOMI. negative: Scleral Icterus, Conjunctival Injection - ENT ENT Exam: Normal External Ear Exam External Ear Exam: Normal External Inspection TM/Canal Exam: Bilateral Normal Nose Exam: Normal Nose Exam Mouth Exam: Normal Inspection Throat Exam: Tonsillar Erythema. negative: Tonsillomegaly, Tonsillar Exudate - Neck Neck Exam: Trachea Midline. negative: Tenderness, Meningismus, Lymphadenopathy - Chest Chest Inspection: Symmetric Chest Wall Rise - Respiratory Respiratory Exam: Respiratory Distress Respiratory Exam: Bilateral Wheezing, Bilateral Rhonchi, Upper Rhonchi, Lower Wheezing, Lower Rhonchi - Cardiovascular Cardiovascular Exam: Regular Rate, Normal Rhythm, Normal Heart Sounds - Abdominal Exam Abdominal Exam: Normal Bowel Sounds, Soft. negative: Tenderness - Extremities Extremities Exam: Normal Inspection - Back Back Exam: Normal Inspection - Neurologic Neurological Exam: Alert, Oriented X3 - Psychiatric Psychiatric Exam: Normal Affect - Skin Skin Exam: Normal Color MDM - Differential Diagnosis Differential Diagnosis: PNEUMONIA, CHF, [place], BRONCHITIS Course - Treatment Treatment: SEE ORDERS. - Education/Counseling Education/Counseling: Patient, Education Educated On: Diagnosis ROR - Labs Reviewed Result Diagrams: 07/26/17 10:00 07/26/17 10:00 Laboratory: WBC 7.5 X10^3/uL (3.6-10.0) 07/26/17 10:00 RBC 3.32 X10^6/uL (3.5-5.4) L 07/26/17 10:00 Hgb 9.8 g/dL (12.0-16.0) L 07/26/17 10:00 Hct 30.1 % (36.0-47.0) L 07/26/17 10:00 MCV 90.7 fL (80.0-100.0) 07/26/17 10:00 MCH 29.4 pg (27.0-34.0) 07/26/17 10:00 MCHC 32.4 g/dL (33.0-35.0) L 07/26/17 10:00 RDW 16.0 % (11.6-16.5) 07/26/17 10:00 Plt Count 132 X10^3/uL (150.0-450.0) L 07/26/17 10:00 MPV 10.0 fL (7.4-11.0) 07/26/17 10:00 Neut % 77.1 % (42.0-75.0) H 07/26/17 10:00 Lymph % 14.3 % (21.0-51.0) L 07/26/17 10:00 [place] % 5.9 % (0.0-13.0) 07/26/17 10:00 Eos % 2.1 % (0.9-2.9) 07/26/17 10:00 Baso % 0.6 % (0.2-1.0) 07/26/17 10:00 Neut # 5.8 x10^3/uL (2.2-4.8) H 07/26/17 10:00 Lymph # 1.1 X10^3/uL (1.3-2.9) L 07/26/17 10:00 [place] # 0.4 x10^3/uL (0.3-0.8) 07/26/17 10:00 Eos # 0.2 x10^3/uL (0.0-0.2) 07/26/17 10:00 Baso # 0.0 X10^3/uL (0.0-0.1) 07/26/17 10:00 Absolute Nucleated RBC 0.0 /100WBC 07/26/17 10:00 Sodium 140 mmol/L (136-145) 07/26/17 10:00 Corrected Sodium TNP 07/26/17 10:00 Potassium 5.7 mmol/L (3.5-5.1) H 07/26/17 10:00 Chloride 97 mmol/L (98-107) L 07/26/17 10:00 Carbon Dioxide 30.0 mmol/L (21-32) 07/26/17 10:00 BUN 53 mg/dL (7-18) H 07/26/17 10:00 Creatinine 11.50 mg/dL (0.55-1.02) H 07/26/17 10:00 Est GFR (MDRD) Af Amer 4 (>60) L 07/26/17 10:00 Est GFR (MDRD) Non-Af 3 (>60) L 07/26/17 10:00 Glucose 99 mg/dL (65-99) 07/26/17 10:00 Lactic Acid 0.8 mmol/L (0.4-2.0) 07/26/17 10:00 Calcium 8.3 mg/dL (8.5-10.1) L 07/26/17 10:00 Corrected Calcium TNP 07/26/17 10:00 Total Bilirubin 0.40 mg/dL (0.2-1.0) 07/26/17 10:00 AST 11 Units/L (15-37) L 07/26/17 10:00 ALT 18 Units/L (12-78) 07/26/17 10:00 Alkaline Phosphatase 58 Units/L (46-116) 07/26/17 10:00 Creatine Kinase 98 Units/L (26-192) 07/26/17 10:00 CK-MB (CK-2) 1.2 ng/mL (0-4.0) 07/26/17 10:00 CK/CKMB % Calc 1.2 % (<4) 07/26/17 10:00 Troponin I < 0.02 ng/mL (0-1.5) 07/26/17 10:00 C-Reactive Protein 81.20 mg/L (0-3.0) H 07/26/17 10:00 B-Natriuretic Peptide 1070 pg/mL (0-79) H* 07/26/17 10:00 Total Protein 8.2 g/dL (6.4-8.2) 07/26/17 10:00 Albumin 3.5 g/dL (3.4-5.0) 07/26/17 10:00 Globulin 4.7 g/dL (2.5-4.5) H 07/26/17 10:00 Albumin/Globulin Ratio 0.7 Ratio (1.1-2.1) L 07/26/17 10:00 - XRAY XRAY Interpreted by: Radiologist XRAY Findings: REPORT DISCUSS WITH PATIENT, - EKG Rhythm: NSR - Diagnosis Discharge Problem: Bronchitis CHF (congestive heart failure) Qualifiers: Congestive heart failure type: combined Congestive heart failure chronicity: acute on chronic Qualified Code(s): I50.43 - Acute on chronic combined systolic (congestive) and diastolic (congestive) heart failure - Discharge Plan Disposition: 01 HOME, SELF-CARE Condition: Stable Prescriptions: Amoxicillin & Pot Clavulanate [AUGMENTIN TAB 875 mg/125 mg *] 1 tab PO BID #20 tab - Follow ups/Referrals Follow ups/Referrals: MURPHY POWERS [Primary Care Provider] - 3 days - Instructions Instructions: Acute Bronchitis, [id number], Heart Failure, [id number] Additional Instructions: RETURN TO ED IF WORSE.
--- NOTE | 2017-07-26 10:14 | RAD ---
Examination: Portable AP chest History: Chest pain, renal failure Comparison reference: 12/26/2016 Continued cardiac enlargement. The pulmonary vessels are significantly distended and indistinct with diffuse interstitial prominence throughout the lungs. There is no evidence for pneumothorax or large pleural effusion. A vascular graft is noted in the left upper arm. Impression: Cardiomegaly and pulmonary vascular changes consistent with CHF. This may be cardiogenic or related to hypervolemia. Reported By:
[2017-07-26] MEDS ORDERED: LASIX IVP ONE (10:17)
[2017-07-26] MEDS ORDERED: ROCEPHIN VIAL 1 GM 1 GM in NS 50 ML IV + SPIKE MINIBAG* 50 ML IV ONE (10:18)
[2017-07-26 10:22] LABS: BASOPHILS % (AUTO) 0.6 % (0.2-1.0); EOSINOPHILS # (AUTO) 0.2 x10^3/uL (0.0-0.2); EOSINOPHILS % (AUTO) 2.1 % (0.9-2.9); HEMATOCRIT 30.1 % (36.0-47.0); HEMOGLOBIN 9.8 g/dL (12.0-16.0); LYMPHOCYTES # (AUTO) 1.1 X10^3/uL (1.3-2.9); LYMPHOCYTES % (AUTO) 14.3 % (21.0-51.0); MEAN CORPUSCULAR HEMOGLOBIN 29.4 pg (27.0-34.0); MEAN CORPUSCULAR HGB CONC 32.4 g/dL (33.0-35.0); MEAN CORPUSCULAR VOLUME 90.7 fL (80.0-100.0); MONOCYTES # (AUTO) 0.4 x10^3/uL (0.3-0.8); MONOCYTES % (AUTO) 5.9 % (0.0-13.0); NEUTROPHILS # (AUTO) 5.8 x10^3/uL (2.2-4.8); NEUTROPHILS % (AUTO) 77.1 % (42.0-75.0); PLATELET COUNT 132 X10^3/uL (150.0-450.0); RED BLOOD COUNT 3.32 X10^6/uL (3.5-5.4); WHITE BLOOD COUNT 7.5 X10^3/uL (3.6-10.0)
[2017-07-26 10:39] LABS: LACTIC ACID 0.8 mmol/L (0.4-2.0)
[2017-07-26 10:41] LABS: ALANINE AMINOTRANSFERASE 18 Units/L (12-78); ALBUMIN 3.5 g/dL (3.4-5.0); ALKALINE PHOSPHATASE 58 Units/L (46-116); ASPARTATE AMINO TRANSFERASE 11 Units/L (15-37); BLOOD UREA NITROGEN 53 mg/dL (7-18); CALCIUM 8.3 mg/dL (8.5-10.1); CHLORIDE 97 mmol/L (98-107); CKMB % 1.2 % (<4); CREATINE KINASE 98 Units/L (26-192); CREATINE KINASE MB 1.2 ng/mL (0-4.0); SODIUM 140 mmol/L (136-145); TOTAL PROTEIN 8.2 g/dL (6.4-8.2); TROPONIN I < 0.02 ng/mL (0-1.5); eGFR BLACK RACES 4 (>60); eGFR NON BLACK RACES 3 (>60)
[2017-07-26 10:49] LABS: B-TYPE NATRIURETIC PEPTIDE 1070 pg/mL (0-79)
[2017-07-26] MEDS ORDERED: ROCEPHIN VIAL 1 GM IM ONE (10:59)
[2017-07-26] MEDS ORDERED: ROCEPHIN VIAL 1 GM ONE (11:07)
== END 2017-07-26 11:38 | disposition home or self-care (01) ==
LOC: ER 08:27
DX: J40 Bronchitis, not specified as acute or chronic (principal); I50.43 Acute on chronic combined systolic (congestive) and diastolic (congestive) heart failure; I51.7 Cardiomegaly; R06.02 Shortness of breath
CPT/HCPCS: 36415; 71010; 80053; 82550; 82553; 83605; 83880; 84484; 85025; 86140; 87040; 93005; 93010; 96372; 99283; A4222; J0696

== ENCOUNTER 2017-10-18 18:42 | Emergency (ER) | payer OTHER, MEDICAID ==
[2017-10-18 18:59] VITALS: BMI 48.4
[2017-10-18 19:24] LABS: BASOPHILS % (AUTO) 0.5 % (0.2-1.0); EOSINOPHILS # (AUTO) 0.2 x10^3/uL (0.0-0.2); EOSINOPHILS % (AUTO) 4.1 % (0.9-2.9); HEMATOCRIT 35.5 % (36.0-47.0); HEMOGLOBIN 11.5 g/dL (12.0-16.0); LYMPHOCYTES # (AUTO) 1.3 X10^3/uL (1.3-2.9); LYMPHOCYTES % (AUTO) 23.7 % (21.0-51.0); MEAN CORPUSCULAR HEMOGLOBIN 28.5 pg (27.0-34.0); MEAN CORPUSCULAR HGB CONC 32.5 g/dL (33.0-35.0); MEAN CORPUSCULAR VOLUME 87.9 fL (80.0-100.0); MEAN PLATELET VOLUME 9.8 fL (7.4-11.0); MONOCYTES # (AUTO) 0.3 x10^3/uL (0.3-0.8); NEUTROPHILS # (AUTO) 3.6 x10^3/uL (2.2-4.8); NEUTROPHILS % (AUTO) 66.7 % (42.0-75.0); PLATELET COUNT 127 X10^3/uL (150.0-450.0); RED BLOOD COUNT 4.04 X10^6/uL (3.5-5.4); RED CELL DISTRIBUTION WIDTH 14.3 % (11.6-16.5); WHITE BLOOD COUNT 5.3 X10^3/uL (3.6-10.0)
[2017-10-18 19:35] LABS: ALANINE AMINOTRANSFERASE 18 Units/L (12-78); ALBUMIN 3.6 g/dL (3.4-5.0); ALKALINE PHOSPHATASE 73 Units/L (46-116); ASPARTATE AMINO TRANSFERASE < 6 Units/L (15-37); BLOOD UREA NITROGEN 24 mg/dL (7-18); CALCIUM 9.1 mg/dL (8.5-10.1); CARBON DIOXIDE 32.9 mmol/L (21-32); CHLORIDE 98 mmol/L (98-107); COR NA(FOR HYPERGLY) 141 mmol/L (136-145); CREATININE 7.29 mg/dL (0.55-1.02); SODIUM 139 mmol/L (136-145); TOTAL PROTEIN 7.9 g/dL (6.4-8.2); eGFR BLACK RACES 7 (>60); eGFR NON BLACK RACES 6 (>60)
--- NOTE | 2017-10-18 20:03 | DR.GENAD ---
HPI - HPI Comment HPI Comment: HISTORY BELOW. - Complaint/Symptoms Chief Complaint Doctors Comments: SEVERE BLEEDING FROM DIALYSIS AV SHUNT THAT STARTED AT END OF DIALYSIS TODAY. LOCAL PRESSURE DID NOT HELP. PATIENT IS BLEEDING PROFUSELY AT PRESENT. DENIES DIZZINESS OR NEAR SYNCOPAL FEELING. Chief Complaint:: pt bleeding from dialysis fistula for the past 4 hours staff from [place] [facility] called report in. appears to be artial pressure applied on arrive - Nurses notes reviewed Nurses Notes Review: Yes - Source History Provided: Patient - Mode of Arrival Mode of Arrival: EMS - Timing Onset of Chief Complaint: 10/18/17 Came on: Suddenly - Duration Duration: Constant Duration: Hours - Severity Severity: Severe PMH - PMH Past Medical History: Yes Past Medical History: Arthritis, CHF, Diabetes, Dialysis, Hypertension, Renal Disease Past Surgical History: Yes Surgical History: Angioplasty/Stents, Hysterectomy Past Surgical History Comment: dialysis fistula - Family History History of Family Medical Conditions: Yes Family Medical History: Diabetes Mellitus, Cancer, [place], Hypertension - Social History Do you use any recreational Drugs:: No Lives With: Family Lives Where: Home - infectious screening In the last 2 months have you had wt loss of >10#?: NO Have you had fever, night sweats or hemotysis?: No Have you traveled outside the country in the last 6 months?: No Isolation: Standard ROS - Review of Systems Constitutional: Weakness, Fatigue. negative: Chills, Fever Eyes: No Symptoms Reported. negative: Eye Pain, Discharge ENTM: negative: Ear Pain, Nose Discharge, Nose Congestion, Throat Pain Respiratoy: Non-Productive Cough. negative: Short of Breath, Wheezing, Hemoptysis Cardiovascular: No Symptoms Reported Gastrointestinal/Abdominal: No Symptoms Reported Genitourinary: No Symptoms Reported Neurological: No Symptoms Reported, Weakness Musculoskeletal: No Symptoms Reported, Right, Arm (BLEEDING.) Integumentary: Wound (AV SHUNT WOUNF RT ARM BLEEDING.) Hematologic/Lymphatic: Anemia, Other Endocrine: No Symptoms Reported. negative: Flushing, Increased Thirst, Increased Urine All Other Systems: Reviewed and Negative PE - Vital Signs Vitals: Temperature 97.6 F Pulse Rate 91 Respiratory Rate 16 Blood Pressure [Left Arm] 145/78 Blood Pressure [Sitting] 118/65 Blood Pressure [Lying] 108/50 Blood Pressure 151/67 O2 Sat by Pulse Oximetry 96 - General Limitations: No Limitations General Appearance: Alert - Head Head Exam: Normal Inspection - Eyes Eye exam: Normal Appearance - ENT ENT Exam: Normal External Ear Exam External Ear Exam: Normal External Inspection TM/Canal Exam: Bilateral Normal Nose Exam: Normal Nose Exam Mouth Exam: Normal Inspection Throat Exam: Normal Inspection. negative: Tonsillar Erythema, Tonsillomegaly, Tonsillar Exudate - Neck Neck Exam: Trachea Midline - Chest Chest Inspection: Symmetric Chest Wall Rise - Respiratory Respiratory Exam: Normal Lung Sounds Bilat Respiratory Exam: Bilateral Rhonchi, Lower Rhonchi - Cardiovascular Cardiovascular Exam: Regular Rate, Normal Rhythm - Abdominal Exam Abdominal Exam: Normal Bowel Sounds, Soft. negative: Tenderness - Extremities Extremities Exam: Tenderness (RT AV SHUNT BLEEDING.), Other (BRUIE HEARD IN UPPER ARM. BLEEDING SITE INNER ARM NEAR ELBOW. STRONGE PULSE FELT ALL THE WAY TO WRIST. NO BRUIE AT THIS SITE.) - Back Back Exam: Paraspinal Tenderness - Neurologic Neurological Exam: Alert, Oriented X3 - Psychiatric Psychiatric Exam: Anxious - Skin Skin Exam: Erythema MDM - Additional Information Additional Information Obtained From: Family - Differential Diagnosis Differential Diagnosis: AV SHUNT DIALYSIS BLEEDING WOUND. Course - Treatment Treatment: SEE ORDERS. USING 3-0 ABSORBABLE VINYL, [address] BLEEDING SITE TO STOP IMMEDIATE BLEEDING. SURGICAL CONSULT OBTAIN. SURGEON WILL LEAVE SUTURE INTACT FOR NOW. WILL CONTINUE TO OBSERVE. PENDING LABS. DR. MAZARIEGOS , VASCULAR SURGEON WAS NOT AVAILABLE TO DISCUSS PATIENT WITH HIM. - Education/Counseling Education/Counseling: Patient, Family, Education Educated On: Treatment, Diagnosis, Needs for Follow Up ROR - Labs Reviewed Laboratory Results Reviewed?: Yes Result Diagrams: 10/18/17 19:15 10/18/17 19:15 Laboratory: WBC 5.3 X10^3/uL (3.6-10.0) 10/18/17 19:15 RBC 4.04 X10^6/uL (3.5-5.4) 10/18/17 19:15 Hgb 11.5 g/dL (12.0-16.0) L 10/18/17 19:15 Hct 35.5 % (36.0-47.0) L 10/18/17 19:15 MCV 87.9 fL (80.0-100.0) 10/18/17 19:15 MCH 28.5 pg (27.0-34.0) 10/18/17 19:15 MCHC 32.5 g/dL (33.0-35.0) L 10/18/17 19:15 RDW 14.3 % (11.6-16.5) 10/18/17 19:15 Plt Count 127 X10^3/uL (150.0-450.0) L 10/18/17 19:15 MPV 9.8 fL (7.4-11.0) 10/18/17 19:15 Neut % 66.7 % (42.0-75.0) 10/18/17 19:15 Lymph % 23.7 % (21.0-51.0) 10/18/17 19:15 [place] % 5.0 % (0.0-13.0) 10/18/17 19:15 Eos % 4.1 % (0.9-2.9) H 10/18/17 19:15 Baso % 0.5 % (0.2-1.0) 10/18/17 19:15 Neut # 3.6 x10^3/uL (2.2-4.8) 10/18/17 19:15 Lymph # 1.3 X10^3/uL (1.3-2.9) 10/18/17 19:15 [place] # 0.3 x10^3/uL (0.3-0.8) 10/18/17 19:15 Eos # 0.2 x10^3/uL (0.0-0.2) 10/18/17 19:15 Baso # 0.0 X10^3/uL (0.0-0.1) 10/18/17 19:15 Absolute Nucleated RBC 0.1 /100WBC 10/18/17 19:15 Sodium 139 mmol/L (136-145) 10/18/17 19:15 Corrected Sodium 141 mmol/L (136-145) 10/18/17 19:15 Potassium 3.4 mmol/L (3.5-5.1) L 10/18/17 19:15 Chloride 98 mmol/L (98-107) 10/18/17 19:15 Carbon Dioxide 32.9 mmol/L (21-32) H 10/18/17 19:15 BUN 24 mg/dL (7-18) H 10/18/17 19:15 Creatinine 7.29 mg/dL (0.55-1.02) H 10/18/17 19:15 Est GFR (MDRD) Af Amer 7 (>60) L 10/18/17 19:15 Est GFR (MDRD) Non-Af 6 (>60) L 10/18/17 19:15 Glucose 183 mg/dL (65-99) H 10/18/17 19:15 Calcium 9.1 mg/dL (8.5-10.1) 10/18/17 19:15 Corrected Calcium TNP 10/18/17 19:15 Total Bilirubin 0.20 mg/dL (0.2-1.0) 10/18/17 19:15 AST < 6 Units/L (15-37) L 10/18/17 19:15 ALT 18 Units/L (12-78) 10/18/17 19:15 Alkaline Phosphatase 73 Units/L (46-116) 10/18/17 19:15 Total Protein 7.9 g/dL (6.4-8.2) 10/18/17 19:15 Albumin 3.6 g/dL (3.4-5.0) 10/18/17 19:15 Globulin 4.3 g/dL (2.5-4.5) 10/18/17 19:15 Albumin/Globulin Ratio 0.8 Ratio (1.1-2.1) L 10/18/17 19:15 - Diagnosis Discharge Problem: Dialysis AV fistula malfunction Qualifiers: Encounter type: initial encounter Qualified Code(s): T82.590A - Other mechanical complication of surgically created arteriovenous fistula, initial encounter Hemorrhage from dialysis shunt Qualifiers: Encounter type: initial encounter Qualified Code(s): T82.838A - Hemorrhage due to vascular prosthetic devices, implants and grafts, initial encounter - Discharge Plan Disposition: 01 HOME, SELF-CARE Condition: Stable - Follow ups/Referrals Follow ups/Referrals: NFD,None [Primary Care Provider] - 1 day - Instructions Instructions: Dialysis Vascular Access Malfunction Additional Instructions: RETURN TO ED IF WORSE. SEE DR. MAZARIEGOS VASCULAR SURGEON IN AM.
[2017-10-18 20:21] VITALS: BP 145/78
== END 2017-10-18 20:21 | disposition home or self-care (01) ==
LOC: ER 18:47
DX: T82.590A Other mechanical complication of surgically created arteriovenous fistula, initial encounter (principal); T82.838A Hemorrhage due to vascular prosthetic devices, implants and grafts, initial encounter
CPT/HCPCS: 36415; 80053; 85025; 99283; 99285

== ENCOUNTER → 2017-11-11 | Outpatient (CLI) | payer OTHER, MEDICAID ==
[2017-10-18 20:21] VITALS: BP 145/78
--- NOTE | 2017-11-11 15:04 | RAD ---
HISTORY: Shortness of breath Study: Two-view chest Comparison: 07/26/2017 Findings: The trachea is midline. The cardiac silhouette is enlarged with a tortuous thoracic aorta. The lung s are clear without focal infiltrate or effusion. The bony thorax is unremarkable. IMPRESSION: 1. No acute cardiopulmonary disease. Reported By:
== END ==
LOC: RAD 14:26
PROVIDERS: ATTEND Internal Medicine Pulmonary Disease
DX: R06.02 Shortness of breath (principal)
CPT/HCPCS: 71046

== ENCOUNTER 2018-01-02 13:41 | Emergency (ER) | payer OTHER, MEDICAID ==
--- NOTE | 2018-01-02 13:56 | DR.GENAD ---
HPI - HPI Comment HPI Comment: PAIN SEVERE TODAY. ESRD ON HEMODIALYSIS. DIALYSIS DUE TOMORROW. NO TRAUMA OR FEVER. - Complaint/Symptoms Chief Complaint Doctors Comments: RIGHT ABDOMINAL PAIN AND RIGHT FLANK PAIN TIMES ONE DAY. - Nurses notes reviewed Nurses Notes Review: Yes - Source History Provided: Patient - Mode of Arrival Mode of Arrival: Stretcher - Timing Came on: Suddenly - Duration Duration: Constant Duration: Days - Severity Severity: Moderate PMH - PMH Past Medical History: Arthritis, CHF, Diabetes, Dialysis, Hypertension, Renal Disease Past Surgical History: Yes Surgical History: Angioplasty/Stents, Hysterectomy - Family History Family Medical History: Diabetes Mellitus, Cancer, [place], Hypertension - Social History Do you use any recreational Drugs:: No ROS - Review of Systems Constitutional: No Symptoms Reported. negative: Chills, Fever Eyes: No Symptoms Reported. negative: Eye Pain, Discharge ENTM: No Symptoms Reported. negative: Ear Pain, Nose Discharge, Nose Congestion , Throat Pain Respiratoy: Short of Breath. negative: Productive Cough, Wheezing, Hemoptysis Cardiovascular: Chest Pain (RIGHT LOWER CHEST PAIN.) Gastrointestinal/Abdominal: Abdominal Pain (RIGHT FLANK AND ABDOMEN PAIN.). negative: Nausea, Vomiting Genitourinary: No Symptoms Reported, Other (ANURIA FOR SEVERAL MONTHS.) Neurological: No Symptoms Reported Musculoskeletal: No Symptoms Reported Integumentary: No Symptoms Reported Hematologic/Lymphatic: No Symptoms Reported Endocrine: No Symptoms Reported All Other Systems: Reviewed and Negative PE - Vital Signs Vitals: Temperature 98.0 F Pulse Rate 84 Respiratory Rate 20 Blood Pressure [Left Arm] 145/78 Blood Pressure [Sitting] 118/65 Blood Pressure [Lying] 108/50 Blood Pressure 143/68 O2 Sat by Pulse Oximetry 92 - General Limitations: No Limitations General Appearance: Alert - Head Head Exam: Normal Inspection - Eyes Eye exam: Normal Appearance - ENT ENT Exam: Normal External Ear Exam External Ear Exam: Normal External Inspection TM/Canal Exam: Bilateral Normal Nose Exam: Normal Nose Exam Mouth Exam: Normal Inspection Throat Exam: Normal Inspection - Neck Neck Exam: Trachea Midline - Chest Chest Inspection: Symmetric Chest Wall Rise - Respiratory Respiratory Exam: Normal Lung Sounds Bilat Respiratory Exam: Bilateral Clear to Auscultation - Cardiovascular Cardiovascular Exam: Regular Rate, Normal Rhythm, Normal Heart Sounds - Abdominal Exam Abdominal Exam: Normal Bowel Sounds, Soft, Tenderness Abdominal Tenderness: RUQ, RLQ - Extremities Extremities Exam: Normal Inspection - Back Back Exam: (R) CVA Tenderness - Neurologic Neurological Exam: Alert, Oriented X3 - Psychiatric Psychiatric Exam: Normal Affect, Normal Mood - Skin Skin Exam: Normal Color MDM - Differential Diagnosis Differential Diagnosis: ABD PAIN, UTI, KIDNEY STONE, BOWEL OBST Course - Treatment Treatment: SEE ORDERS - Education/Counseling Education/Counseling: Patient, Education Educated On: Diagnosis, Needs for Follow Up ROR - Labs Reviewed Laboratory Results Reviewed?: Yes Result Diagrams: 01/02/18 14:17 01/02/18 14:17 Laboratory: WBC 5.7 X10^3/uL (3.6-10.0) 01/02/18 14:17 RBC 4.16 X10^6/uL (3.5-5.4) 01/02/18 14:17 Hgb 11.8 g/dL (12.0-16.0) L 01/02/18 14:17 Hct 35.7 % (36.0-47.0) L 01/02/18 14:17 MCV 85.8 fL (80.0-100.0) 01/02/18 14:17 MCH 28.3 pg (27.0-34.0) 01/02/18 14:17 MCHC 33.0 g/dL (33.0-35.0) 01/02/18 14:17 RDW 14.6 % (11.6-16.5) 01/02/18 14:17 Plt Count 150 X10^3/uL (150.0-450.0) 01/02/18 14:17 MPV 10.0 fL (7.4-11.0) 01/02/18 14:17 Neut % (Auto) 68.1 % (42.0-75.0) 01/02/18 14:17 Lymph % (Auto) 21.2 % (21.0-51.0) 01/02/18 14:17 [place] % (Auto) 6.3 % (0.0-13.0) 01/02/18 14:17 Eos % (Auto) 3.6 % (0.9-2.9) H 01/02/18 14:17 Baso % (Auto) 0.8 % (0.2-1.0) 01/02/18 14:17 Neut # (Auto) 3.9 x10^3/uL (2.2-4.8) 01/02/18 14:17 Lymph # (Auto) 1.2 X10^3/uL (1.3-2.9) L 01/02/18 14:17 [place] # (Auto) 0.4 x10^3/uL (0.3-0.8) 01/02/18 14:17 Eos # (Auto) 0.2 x10^3/uL (0.0-0.2) 01/02/18 14:17 Baso # (Auto) 0.0 X10^3/uL (0.0-0.1) 01/02/18 14:17 Absolute Nucleated RBC 0.0 /100WBC 01/02/18 14:17 Sodium 139 mmol/L (136-145) 01/02/18 14:17 Corrected Sodium 142 mmol/L (136-145) 01/02/18 14:17 Potassium 4.3 mmol/L (3.5-5.1) 01/02/18 14:17 Chloride 95 mmol/L (98-107) L 01/02/18 14:17 Carbon Dioxide 30.2 mmol/L (21-32) 01/02/18 14:17 BUN 52 mg/dL (7-18) H 01/02/18 14:17 Creatinine 10.44 mg/dL (0.55-1.02) H 01/02/18 14:17 Est GFR (MDRD) Af Amer 5 (>60) L 01/02/18 14:17 Est GFR (MDRD) Non-Af 4 (>60) L 01/02/18 14:17 Glucose 231 mg/dL (65-99) H 01/02/18 14:17 Calcium 8.6 mg/dL (8.5-10.1) 01/02/18 14:17 Corrected Calcium TNP 01/02/18 14:17 Total Bilirubin 0.30 mg/dL (0.2-1.0) 01/02/18 14:17 AST 6 Units/L (15-37) L 01/02/18 14:17 ALT 15 Units/L (12-78) 01/02/18 14:17 Alkaline Phosphatase 66 Units/L (46-116) 01/02/18 14:17 Creatine Kinase 68 Units/L (26-192) 01/02/18 14:17 CK-MB (CK-2) 1.9 ng/mL (0-4.0) 01/02/18 14:17 CK/CKMB % Calc 2.8 % (<4) 01/02/18 14:17 Troponin I < 0.02 ng/mL (0-1.5) 01/02/18 14:17 Total Protein 8.0 g/dL (6.4-8.2) 01/02/18 14:17 Albumin 3.5 g/dL (3.4-5.0) 01/02/18 14:17 Globulin 4.5 g/dL (2.5-4.5) 01/02/18 14:17 Albumin/Globulin Ratio 0.8 Ratio (1.1-2.1) L 01/02/18 14:17 Amylase 31 Units/L (25-115) 01/02/18 14:17 Lipase 209 Units/L (73-393) 01/02/18 14:17 - XRAY XRAY Interpreted by: Radiologist XRAY Findings: REPORT DISCUSS WITH PATIENT. - EKG Rhythm: NSR (EKG NOTED) - Diagnosis Discharge Problem: Right sided abdominal pain Abdominal pain Qualifiers: Abdominal location: upper abdomen, unspecified Qualified Code(s): R10.10 - Upper abdominal pain, unspecified - Discharge Plan Disposition: 01 HOME, SELF-CARE Condition: Stable - Follow ups/Referrals Follow ups/Referrals: MILLIE FAUST [Primary Care Provider] - 01/03/18 - Instructions Instructions: Abdominal Pain, Adult, [id number], Flank Pain, Adult Additional Instructions: RETURN TO ED IF WORSE. RECHECK WITH DIALYSIS DOCTOR IN AM.
[2018-01-02] MEDS ORDERED: TORADOL 60 MG VIAL IM ONE (14:00)
[2018-01-02 14:05] VITALS: BP 143/68; BMI 40.8
[2018-01-02] MEDS ORDERED: TORADOL 60 MG VIAL ONE (14:09)
[2018-01-02 14:45] LABS: BASOPHILS % (AUTO) 0.8 % (0.2-1.0); EOSINOPHILS # (AUTO) 0.2 x10^3/uL (0.0-0.2); EOSINOPHILS % (AUTO) 3.6 % (0.9-2.9); HEMATOCRIT 35.7 % (36.0-47.0); HEMOGLOBIN 11.8 g/dL (12.0-16.0); LYMPHOCYTES # (AUTO) 1.2 X10^3/uL (1.3-2.9); LYMPHOCYTES % (AUTO) 21.2 % (21.0-51.0); MEAN CORPUSCULAR HEMOGLOBIN 28.3 pg (27.0-34.0); MEAN CORPUSCULAR VOLUME 85.8 fL (80.0-100.0); MONOCYTES # (AUTO) 0.4 x10^3/uL (0.3-0.8); MONOCYTES % (AUTO) 6.3 % (0.0-13.0); NEUTROPHILS # (AUTO) 3.9 x10^3/uL (2.2-4.8); NEUTROPHILS % (AUTO) 68.1 % (42.0-75.0); PLATELET COUNT 150 X10^3/uL (150.0-450.0); RED BLOOD COUNT 4.16 X10^6/uL (3.5-5.4); RED CELL DISTRIBUTION WIDTH 14.6 % (11.6-16.5); WHITE BLOOD COUNT 5.7 X10^3/uL (3.6-10.0)
--- NOTE | 2018-01-02 14:48 | RAD ---
HISTORY: Abdominal pain, gas pain. Prior history of hypertension, diabetes, COPD, asthma and CHF. Study: Abdomen series with PA chest. Comparison: 09/20/2015. Technique: KUB and upright views of the abdomen are provided as well as a PA chest. Findings: The trachea is midline. There is cardiomegaly with pulmonary vascular congestion. No CHF, infiltrate, pleural fluid or pneumothorax is seen. There is again mild relative elevation of the right hemidiaph ragm. Vascular endo grafts are present in the axillary regions bilaterally. Osseous structures are in tact. Large amount of stool is present in the cecum. Increased small bowel gas is present in a nonspecific pattern, likely represent a small bowel ileus . There is no evidence of bowel obstruction No opaque s tone is seen. No evidence of free intraperitoneal air or fluid is seen No acute osseous changes are i dentified. IMPRESSION: Cardiomegaly with mild pulmonary vascular congestion. No CHF, infiltrate or pneumothorax is seen. Very mild small bowel ileus pattern without bowel obstruction or perforation. Reported By:
[2018-01-02 15:11] LABS: BLOOD UREA NITROGEN 52 mg/dL (7-18); CALCIUM 8.6 mg/dL (8.5-10.1); CARBON DIOXIDE 30.2 mmol/L (21-32); CHLORIDE 95 mmol/L (98-107); COR NA(FOR HYPERGLY) 142 mmol/L (136-145); CREATININE 10.44 mg/dL (0.55-1.02); SODIUM 139 mmol/L (136-145); TROPONIN I < 0.02 ng/mL (0-1.5); eGFR BLACK RACES 5 (>60); eGFR NON BLACK RACES 4 (>60)
[2018-01-02 15:28] LABS: ALANINE AMINOTRANSFERASE 15 Units/L (12-78); ALBUMIN 3.5 g/dL (3.4-5.0); ALKALINE PHOSPHATASE 66 Units/L (46-116); AMYLASE 31 Units/L (25-115); ASPARTATE AMINO TRANSFERASE 6 Units/L (15-37); CKMB % 2.8 % (<4); CREATINE KINASE 68 Units/L (26-192); CREATINE KINASE MB 1.9 ng/mL (0-4.0); LIPASE 209 Units/L (73-393)
== END 2018-01-02 16:18 | disposition home or self-care (01) ==
LOC: ER 13:49
DX: R10.84 Generalized abdominal pain (principal)
CPT/HCPCS: 36415; 74022; 80053; 82150; 82550; 82553; 83690; 84484; 85025; 93005; 93010; 96372; 99282; 99283; J1885

== ENCOUNTER 2018-01-26 01:47 | Emergency (ER) | payer OTHER, MEDICAID ==
[2018-01-26] MEDS ORDERED: NITROSTAT SL PRN (01:58)
[2018-01-26] MEDS ORDERED: ASPIRIN PO ONE (01:59)
[2018-01-26] MEDS ORDERED: ASPIRIN 81 MG CHEWTAB ONE (02:00)
[2018-01-26] MEDS ORDERED: NITROSTAT SL ONE (02:00)
[2018-01-26 02:05] VITALS: BMI 47.8
--- NOTE | 2018-01-26 02:09 | DR.GENAD ---
HPI - PCP Primary Care Physician: hermann - Complaint/Symptoms Chief Complaint Doctors Comments: Patient presents with complaint of chest pain for three days. She denies a history of heart disease. She is a dialysis patient for eight years. Chief Complaint:: patient states that she has been having - Source History Provided: Patient - Mode of Arrival Mode of Arrival: EMS - Timing Onset of Chief Complaint: 01/23/18 PMH - PMH Past Medical History: Yes Past Medical History: Arthritis, CHF, Diabetes, Dialysis, Hypertension, Renal Disease Past Surgical History: Yes Surgical History: Angioplasty/Stents, Hysterectomy Past Surgical History Comment: dialysis shunt - Family History History of Family Medical Conditions: Yes Family Medical History: Diabetes Mellitus, Cancer, [place], Hypertension - Social History Does patient currently use any type of tobacco product: No Have you used tobacco products in the last 12 months: No Type of Tobacco Use: None Does any household member use tobacco: No Alcohol Use: None Do you use any recreational Drugs:: No Lives With: Alone Lives Where: Home - infectious screening In the last 2 months have you had wt loss of >10#?: NO Have you had fever, night sweats or hemotysis?: No Have you traveled outside the country in the last 6 months?: No Isolation: Standard ROS - Review of Systems Eyes: No Symptoms Reported ENTM: No Symptoms Reported Respiratoy: No Symptoms Reported Cardiovascular: No Symptoms Reported Gastrointestinal/Abdominal: No Symptoms Reported Genitourinary: No Symptoms Reported Neurological: No Symptoms Reported Musculoskeletal: No Symptoms Reported Integumentary: No Symptoms Reported Hematologic/Lymphatic: No Symptoms Reported Endocrine: No Symptoms Reported Psychiatric: No Symptoms Reported All Other Systems: Reviewed and Negative PE - Vital Signs Vitals: Temperature 99 F Pulse Rate 77 Respiratory Rate 22 Blood Pressure [Left Arm] 145/78 Blood Pressure [Sitting] 118/65 Blood Pressure [Lying] 108/50 Blood Pressure 167/76 O2 Sat by Pulse Oximetry 97 - General General Appearance: Alert, In No Apparent Distress, Appears Intoxicated - Head Head Exam: Normal Inspection, Atraumatic - Eyes Eye exam: Normal Appearance, PERRL, EOMI - ENT ENT Exam: Normal Exam External Ear Exam: Normal External Inspection TM/Canal Exam: Bilateral Normal Nose Exam: Normal Nose Exam Mouth Exam: Normal Inspection Throat Exam: Normal Inspection - Neck Neck Exam: Normal Inspection, Full ROM - Chest Chest Inspection: Normal Inspection, Symmetric Chest Wall Rise - Respiratory Respiratory Exam: Normal Lung Sounds Bilat Respiratory Exam: Bilateral Clear to Auscultation - Cardiovascular Cardiovascular Exam: Regular Rate, Normal Rhythm - Abdominal Exam Abdominal Exam: Normal Inspection, Normal Bowel Sounds Abdominal Tenderness: negative: RUQ, RLQ, LUQ, LLQ, Epigastrium, Suprapubic, Diffuse, Mild, Moderate, Severe, Other - Extremities Extremities Exam: Normal Inspection, Full ROM, Other (dialysis shunt right upper extremity) - Back Back Exam: Normal Inspection, Full ROM - Neurologic Neurological Exam: Alert, Oriented X3, CN II-XII Intact - Skin Skin Exam: Warm, Dry, Intact Course - Reevaluation 1st: Unchanged ROR - Labs Reviewed Result Diagrams: 01/26/18 02:39 01/26/18 02:39 Laboratory: WBC 6.5 X10^3/uL (3.6-10.0) 01/26/18 02:39 RBC 3.68 X10^6/uL (3.5-5.4) 01/26/18 02:39 Hgb 10.3 g/dL (12.0-16.0) L 01/26/18 02:39 Hct 31.4 % (36.0-47.0) L 01/26/18 02:39 MCV 85.2 fL (80.0-100.0) 01/26/18 02:39 MCH 28.0 pg (27.0-34.0) 01/26/18 02:39 MCHC 32.9 g/dL (33.0-35.0) L 01/26/18 02:39 RDW 14.6 % (11.6-16.5) 01/26/18 02:39 Plt Count 151 X10^3/uL (150.0-450.0) 01/26/18 02:39 MPV 9.4 fL (7.4-11.0) 01/26/18 02:39 Neut % (Auto) 78.1 % (42.0-75.0) H 01/26/18 02:39 Lymph % (Auto) 13.9 % (21.0-51.0) L 01/26/18 02:39 [place] % (Auto) 6.0 % (0.0-13.0) 01/26/18 02:39 Eos % (Auto) 1.6 % (0.9-2.9) 01/26/18 02:39 Baso % (Auto) 0.4 % (0.2-1.0) 01/26/18 02:39 Neut # (Auto) 5.1 x10^3/uL (2.2-4.8) H 01/26/18 02:39 Lymph # (Auto) 0.9 X10^3/uL (1.3-2.9) L 01/26/18 02:39 [place] # (Auto) 0.4 x10^3/uL (0.3-0.8) 01/26/18 02:39 Eos # (Auto) 0.1 x10^3/uL (0.0-0.2) 01/26/18 02:39 Baso # (Auto) 0.0 X10^3/uL (0.0-0.1) 01/26/18 02:39 Absolute Nucleated RBC 0.0 /100WBC 01/26/18 02:39 INR Target Range - 01/26/18 02:39 INR 1.03 (0.8-1.3) 01/26/18 02:39 APTT 34.4 SECONDS (22.9-36.5) 01/26/18 02:39 PTT Comment - 01/26/18 02:39 Sodium 137 mmol/L (136-145) 01/26/18 02:39 Corrected Sodium 139 mmol/L (136-145) 01/26/18 02:39 Potassium 4.3 mmol/L (3.5-5.1) 01/26/18 02:39 Chloride 94 mmol/L (98-107) L 01/26/18 02:39 Carbon Dioxide 25.4 mmol/L (21-32) 01/26/18 02:39 BUN 67 mg/dL (7-18) H 01/26/18 02:39 Creatinine 14.30 mg/dL (0.55-1.02) H 01/26/18 02:39 Est GFR (MDRD) Af Amer 3 (>60) L 01/26/18 02:39 Est GFR (MDRD) Non-Af 3 (>60) L 01/26/18 02:39 Glucose 194 mg/dL (65-99) H 01/26/18 02:39 Calcium 8.1 mg/dL (8.5-10.1) L 01/26/18 02:39 Corrected Calcium 8.7 mg/dL (8.5-10.1) 01/26/18 02:39 Magnesium 2.4 mg/dL (1.7-2.9) 01/26/18 02:39 Total Bilirubin 0.30 mg/dL (0.2-1.0) 01/26/18 02:39 AST 6 Units/L (15-37) L 01/26/18 02:39 ALT 14 Units/L (12-78) 01/26/18 02:39 Alkaline Phosphatase 70 Units/L (46-116) 01/26/18 02:39 Creatine Kinase 62 Units/L (26-192) 01/26/18 02:39 CK-MB (CK-2) 2.3 ng/mL (0-4.0) 01/26/18 02:39 CK/CKMB % Calc 3.7 % (<4) 01/26/18 02:39 Troponin I 0.10 ng/mL (0-1.5) 01/26/18 02:39 Total Protein 7.6 g/dL (6.4-8.2) 01/26/18 02:39 Albumin 3.3 g/dL (3.4-5.0) L 01/26/18 02:39 Globulin 4.3 g/dL (2.5-4.5) 01/26/18 02:39 Albumin/Globulin Ratio 0.8 Ratio (1.1-2.1) L 01/26/18 02:39 - XRAY XRAY Interpreted by: Radiologist (Chest: Cardiac silhouette enlargement is unchanged (comparison 11/11/17). The lungs are hypoinflated, but grossly clear without overt edema, focal infiltrates or significant pleural effusion. Impression: No acute chest process. Stable cardiomegaly) - Diagnosis Discharge Problem: Chest pain, rule out acute myocardial infarction, Metabolic acidosis Renal failure Qualifiers: Renal failure chronicity: chronic Chronic kidney disease stage: stage 5, not on chronic dialysis Qualified Code(s): N18.5 - Chronic kidney disease, stage 5 - Discharge Plan Condition: Stable - Follow ups/Referrals Follow ups/Referrals: TAWANA POWERS [Primary Care Provider] - 3 days - Instructions
--- NOTE | 2018-01-26 02:19 | RAD ---
Chest, AP portable Indication: Chest pain Comparison: 11/11/2017 Findings: Cardiac silhouette enlargement is unchanged. The lungs are hypoinflated, but grossly clear without overt edema, focal infiltrates, or significant pleural effusion. Impression: No acute chest process. Stable cardiomegaly. Reported By:
[2018-01-26 02:55] LABS: BASOPHILS % (AUTO) 0.4 % (0.2-1.0); EOSINOPHILS # (AUTO) 0.1 x10^3/uL (0.0-0.2); EOSINOPHILS % (AUTO) 1.6 % (0.9-2.9); HEMATOCRIT 31.4 % (36.0-47.0); HEMOGLOBIN 10.3 g/dL (12.0-16.0); LYMPHOCYTES # (AUTO) 0.9 X10^3/uL (1.3-2.9); LYMPHOCYTES % (AUTO) 13.9 % (21.0-51.0); MEAN CORPUSCULAR HGB CONC 32.9 g/dL (33.0-35.0); MEAN CORPUSCULAR VOLUME 85.2 fL (80.0-100.0); MEAN PLATELET VOLUME 9.4 fL (7.4-11.0); MONOCYTES # (AUTO) 0.4 x10^3/uL (0.3-0.8); NEUTROPHILS # (AUTO) 5.1 x10^3/uL (2.2-4.8); NEUTROPHILS % (AUTO) 78.1 % (42.0-75.0); PLATELET COUNT 151 X10^3/uL (150.0-450.0); RED BLOOD COUNT 3.68 X10^6/uL (3.5-5.4); RED CELL DISTRIBUTION WIDTH 14.6 % (11.6-16.5); WHITE BLOOD COUNT 6.5 X10^3/uL (3.6-10.0)
[2018-01-26] MEDS ORDERED: NS 1000 ML 1,000 ML IV SCH (03:00)
[2018-01-26 03:20] LABS: ALBUMIN 3.3 g/dL (3.4-5.0); CALCIUM 8.1 mg/dL (8.5-10.1); CARBON DIOXIDE 25.4 mmol/L (21-32); CKMB % 3.7 % (<4); COR CA(FOR HYPOALB) 8.7 mg/dL (8.5-10.1); CREATINE KINASE MB 2.3 ng/mL (0-4.0); CREATININE 14.3 mg/dL (0.55-1.02); MAGNESIUM 2.4 mg/dL (1.7-2.9); TOTAL PROTEIN 7.6 g/dL (6.4-8.2); TROPONIN I 0.1 ng/mL (0-1.5)
[2018-01-26] MEDS ORDERED: NS 1000 ML 1,000 ML ONE (04:30)
[2018-01-26 05:02] VITALS: BP 112/55
[2018-01-26 07:45] LABS: CKMB % 3.9 % (<4); TROPONIN I 0.05 ng/mL (0-1.5)
== END 2018-01-26 08:30 | disposition short-term general hospital (02) ==
LOC: ER 01:47
DX: R07.89 Other chest pain (principal); E87.2 Acidosis; N18.5 Chronic kidney disease, stage 5; R94.31 Abnormal electrocardiogram [ECG] [EKG]; I51.7 Cardiomegaly
CPT/HCPCS: 36415; 71045; 80053; 82550; 82553; 83735; 84484; 85025; 85610; 85730; 93005; 93010; 96365; 96367; 99284; 99285; A4222

== ENCOUNTER 2018-08-19 09:00 | Inpatient (IN) ==
[2018-08-19 09:13] VITALS: BMI 42.5
--- NOTE | 2018-08-19 09:26 | DR.AMS ---
HPI Time Seen Time Seen by Provider: 08/19/18 09:11 Complaint Cheif Complaint Doctors Comments: Patient was referred from the residential secondary to AMS. There is no fever, vomiting or diarrhea. PMH PMH Past Medical History: Arthritis, CHF, Coronary Artery Disease, Dementia, Diabetes, Dialysis, GERD, Hypertension, Renal Disease and Schizophrenia Past Surgical History: Yes Surgical History: Angioplasty/Stents and Hysterectomy Family History Family Medical History: Diabetes Mellitus, Cancer, [place] and Hypertension Social History Do you use any recreational Drugs:: No PE Vitals Vital Signs: Temp Pulse Pulse Resp BP BP BP 08/19/18 21:02 83 08/19/18 16:00 97.9 F 80 22 103/54 08/19/18 12:00 97.6 F 80 26 H 122/55 08/19/18 11:57 81 103/54 08/19/18 11:30 81 103/54 08/19/18 11:16 79 87/51 08/19/18 11:10 97.6 F 22 08/19/18 10:28 87 22 126/78 08/19/18 09:02 97.2 F L 95 H 20 101/53 07/03/18 19:17 143/67 06/11/18 06:30 114/69 12/28/16 20:45 108/50 BP Pulse Ox 08/19/18 21:02 96 08/19/18 16:00 95 08/19/18 12:00 96 08/19/18 11:57 100 08/19/18 11:30 100 08/19/18 11:16 100 08/19/18 11:10 92 L 08/19/18 10:28 97 08/19/18 09:02 81 L 07/03/18 19:17 06/11/18 06:30 12/28/16 20:45 118/65 General Limitations: Altered Mental Status General Appearance: Alert and In No Apparent Distress; negative In Distress Head Head Exam: Normal Inspection, Atraumatic and Normocephalic Head Exam Physical: negative Laceration, Abrasion, Contusion, Hematoma, Raccoon Eyes and Doan's Sign Eyes Eye exam: Normal Appearance, PERRL and EOMI Pupils: Regular, Round: Bilateral ENT ENT Exam: Normal Exam and Normal Oropharynx External Ear Exam: Normal External Inspection TM/Canal Exam: Bilateral: Normal Nose Exam: Normal Nose Exam Mouth Exam: Normal Inspection Throat Exam: Normal Inspection Neck Neck Exam: Normal Inspection and Full ROM Chest Chest Inspection: Normal Inspection Respiratory Respiratory Exam: Normal Lung Sounds Bilat Respiratory Exam: Bilateral: Clear to Auscultation Cardiovascular Cardiovascular Exam: Regular Rate and Normal Rhythm Abdominal Exam Abdominal Exam: Normal Inspection, Normal Bowel Sounds and Soft Extremities Extremities Exam: Normal Inspection and Full ROM Back Back Exam: Normal Inspection Neurological Neurological Exam: Alert and Oriented X3 Psychological Psychiatric Exam: Normal Affect and Normal Mood Skin Skin Exam: Warm, Dry and Intact COURSE Treatment Treatment: Iniated pneumonia protocol Consultation Called: 11:20 Consultation Comments: Dr. Bautista agreed to admit for further treatment and evaluation ROR Labs Reviewed Laboratory Results Reviewed?: Yes Result Diagrams: 08/19/18 09:45 08/19/18 09:45 Laboratory: WBC 11.8 X10^3/uL (3.6-10.0) H 08/19/18 09:45 RBC 4.10 X10^6/uL (3.5-5.4) 08/19/18 09:45 Hgb 11.0 g/dL (12.0-16.0) L 08/19/18 09:45 Hct 36.0 % (36.0-47.0) 08/19/18 09:45 MCV 87.8 fL (80.0-100.0) 08/19/18 09:45 MCH 26.8 pg (27.0-34.0) L 08/19/18 09:45 MCHC 30.6 g/dL (33.0-35.0) L 08/19/18 09:45 RDW 16.5 % (11.6-16.5) 08/19/18 09:45 Plt Count 248 X10^3/uL (150.0-450.0) 08/19/18 09:45 MPV 8.5 fL (7.4-11.0) 08/19/18 09:45 Neut % (Auto) 83.6 % (42.0-75.0) H 08/19/18 09:45 Lymph % (Auto) 8.4 % (21.0-51.0) L 08/19/18 09:45 [place] % (Auto) 7.0 % (0.0-13.0) 08/19/18 09:45 Eos % (Auto) 0.6 % (0.9-2.9) L 08/19/18 09:45 Baso % (Auto) 0.4 % (0.2-1.0) 08/19/18 09:45 Neut # (Auto) 9.9 x10^3/uL (2.2-4.8) H 08/19/18 09:45 Lymph # (Auto) 1.0 X10^3/uL (1.3-2.9) L 08/19/18 09:45 [place] # (Auto) 0.8 x10^3/uL (0.3-0.8) 12 09:45 Eos # (Auto) 0.1 x10^3/uL (0.0-0.2) 08/19/18 09:45 Baso # (Auto) 0.1 X10^3/uL (0.0-0.1) 12 09:45 Absolute Nucleated RBC 0.5 /100WBC 08/19/18 09:45 Sample Site Lb 08/19/18 13:22 ABG pH 7.300 (7.35-7.45) L 08/19/18 13:22 ABG pCO2 71.0 mmHg (35.0-45.0) H* 08/19/18 13:22 ABG pO2 59.0 mmHg (80.0-100.0) L 08/19/18 13:22 ABG HCO3 34.9 mmol/L (22-26) H* 08/19/18 13:22 ABG O2 Saturation 87.0 % (90-100) L 08/19/18 13:22 ABG Base Excess 6.2 mmol/L (-2.0-2.0) H 08/19/18 13:22 Kartik Test N/a 08/19/18 13:22 A-a Gradient 102.0 mmHg 08/19/18 13:22 FiO2 35.0 08/19/18 13:22 Blood Gas Comments Pt zina wel. cdn 08/19/18 13:22 Sodium 136 mmol/L (136-145) 08/19/18 09:45 Corrected Sodium 137 mmol/L (136-145) 08/19/18 09:45 Potassium 5.0 mmol/L (3.5-5.1) 08/19/18 09:45 Chloride 93 mmol/L (98-107) L 08/19/18 09:45 Carbon Dioxide 31.4 mmol/L (21-32) 08/19/18 09:45 BUN 30 mg/dL (7-18) H 08/19/18 09:45 Creatinine 6.38 mg/dL (0.55-1.02) H 08/19/18 09:45 Est GFR (MDRD) Af Amer 8 (>60) L 08/19/18 09:45 Est GFR (MDRD) Non-Af 7 (>60) L 08/19/18 09:45 Glucose 160 mg/dL (65-99) H 08/19/18 09:45 POC Glucose (mg/dL) 166 mg/dL (65-99) H 08/19/18 20:40 Calcium 10.6 mg/dL (8.5-10.1) H 08/19/18 09:45 Corrected Calcium 11.3 mg/dL (8.5-10.1) H 08/19/18 09:45 Total Bilirubin 0.30 mg/dL (0.2-1.0) 08/19/18 09:45 AST 29 Units/L (15-37) 08/19/18 09:45 ALT 11 Units/L (12-78) L 08/19/18 09:45 Alkaline Phosphatase 86 Units/L (46-116) 08/19/18 09:45 Creatine Kinase 943 Units/L (26-192) H 08/19/18 16:20 CK-MB (CK-2) 4.4 ng/mL (0-4.0) H* 08/19/18 16:20 CK/CKMB % Calc 0.5 % (<4) 08/19/18 16:20 Troponin I 0.47 ng/mL (0-1.5) 08/19/18 16:20 C-Reactive Protein 267.60 mg/L (0-3.0) H 08/19/18 09:45 Total Protein 8.5 g/dL (6.4-8.2) H 08/19/18 09:45 Albumin 3.1 g/dL (3.4-5.0) L 08/19/18 09:45 Globulin 5.4 g/dL (2.5-4.5) H 08/19/18 09:45 Albumin/Globulin Ratio 0.6 Ratio (1.1-2.1) L 08/19/18 09:45 Other Results Comments: CT Brain: No acute intracranial abnormality or concerning change compared with December 2016. Findings compatible with chronic small vessel disease. Unchanged bilateral proptosis. XRAY XRAY Interpreted by: Radiologist XRAY Findings: Minimal patchy infilltrate left lung base,cardiomegaly mild to moderate Procedures Procedure Comments Procedures: 08.14.18: Partial amputation of right foot [facility] [place]. ADDITIONAL NOTES Additional Notes Additional Notes: Patient will be admitted for further treatment
[2018-08-19 09:58] LABS: BASOPHILS # (AUTO) 0.1 X10^3/uL (0.0-0.1); BASOPHILS % (AUTO) 0.4 % (0.2-1.0); EOSINOPHILS # (AUTO) 0.1 x10^3/uL (0.0-0.2); EOSINOPHILS % (AUTO) 0.6 % (0.9-2.9); LYMPHOCYTES % (AUTO) 8.4 % (21.0-51.0); MEAN CORPUSCULAR HEMOGLOBIN 26.8 pg (27.0-34.0); MEAN CORPUSCULAR HGB CONC 30.6 g/dL (33.0-35.0); MEAN CORPUSCULAR VOLUME 87.8 fL (80.0-100.0); MEAN PLATELET VOLUME 8.5 fL (7.4-11.0); MONOCYTES # (AUTO) 0.8 x10^3/uL (0.3-0.8); NEUTROPHILS # (AUTO) 9.9 x10^3/uL (2.2-4.8); NEUTROPHILS % (AUTO) 83.6 % (42.0-75.0); PLATELET COUNT 248 X10^3/uL (150.0-450.0); RED CELL DISTRIBUTION WIDTH 16.5 % (11.6-16.5); WHITE BLOOD COUNT 11.8 X10^3/uL (3.6-10.0)
[2018-08-19] MEDS ORDERED: NS 1000 ML 1,000 ML IV SCH (10:00)
[2018-08-19] MEDS ORDERED: NS 1000 ML 1,000 ML ONE (10:01)
[2018-08-19 10:10] LABS: CALCIUM 10.6 mg/dL (8.5-10.1); CARBON DIOXIDE 31.4 mmol/L (21-32); CREATININE 6.38 mg/dL (0.55-1.02); TROPONIN I 0.36 ng/mL (0-1.5)
[2018-08-19 10:14] LABS: ALBUMIN 3.1 g/dL (3.4-5.0); CKMB % 0.7 % (<4); COR CA(FOR HYPOALB) 11.3 mg/dL (8.5-10.1); CREATINE KINASE MB 3.1 ng/mL (0-4.0); TOTAL PROTEIN 8.5 g/dL (6.4-8.2)
--- NOTE | 2018-08-19 10:35 | CT ---
HISTORY: Altered mental status. Study: CT brain without contrast.Dose reduction techniques including Automated Exposure Control (AEC) and adjustment of mA and kV were utilized. Comparison: 12/26/2016. Technique: Multiple axial images of the brain were obtained from the skull base to the vertex without administration of IV contrast. Findings: Patient motion limits optimal evaluation. There are scattered areas of periventricular, deep and subcortical white matter hypoattenuation bilaterally similar to the comparison study most compatible with chronic small vessel disease. No acute intraparenchymal hemorrhage or mass can be identified within the limitations of the study. No extra-axial fluid collections are seen. No alteration in the attenuation of the brain parenchyma can be identified to suggest acute or subacute ischemic change. The ventricular system is symmetric and nondilated. There is bilateral proptosis similar to the comparison study. The extracranial structures are grossly unremarkable. IMPRESSION: No acute intracranial abnormality or concerning change compared with December 2016. Findings compatible with chronic small vessel disease. Unchanged bilateral proptosis. Reported By:
[2018-08-19] MEDS ORDERED: PROVENTIL NEB TX 0.083% 2.5MG/ 3ML NEB ONE (10:37)
[2018-08-19] MEDS ORDERED: PROVENTIL NEB TX 0.083% 2.5MG/ 3ML ONE (10:41)
--- NOTE | 2018-08-19 11:03 | RAD ---
HISTORY: Altered mental status Study: AP portable chest Comparison: 07/03/2018 Findings: Mild chronic interstitial scarring is noted. Minimal patchy infiltrate is noted in the left lung base. [id number] cardiomegaly is noted. Moderate osteopenia is noted. Vascular stents are present in the visualized right upper extremity IMPRESSION: 1. [id number] cardiomegaly. 2. Minimal patchy infiltrate in the left lung base. This may be secondary to underlying pneumonia. Follow-up in 10-14 days is recommended. Reported By:
[2018-08-19] MEDS ORDERED: SALINE 3% 15 ML NEB TX ONE (11:10)
[2018-08-19] MEDS ORDERED: LEVAQUIN PREMIX IV 750 MG 750 MG/150 ML BAG IV ONE (11:15)
[2018-08-19 11:25] LABS: ABG BASE EXCESS 5.5 mmol/L (-2.0-2.0)
[2018-08-19 11:26] LABS: ABG ALLEN TEST POS
[2018-08-19] MEDS ORDERED: HumuLIN R SUBCUT PRN (11:29)
[2018-08-19] MEDS ORDERED: LEVAQUIN PREMIX IV 750 MG 750 MG/150 ML BAG IV SCH (12:00)
[2018-08-19] MEDS ORDERED: TYLENOL 325 MG TAB PO PRN (12:09)
[2018-08-19] MEDS ORDERED: MIRALAX POWDER (1 DOSE 17 G) PO PRN (12:09)
[2018-08-19] MEDS: LASIX PO SCH (12:45)
[2018-08-19] MEDS: NORCO 7.5/325 MG TAB PO SCH ×3 (12:45→22:46)
[2018-08-19] MEDS: ROBITUSSIN DM PO SCH ×3 (12:45→22:48)
[2018-08-19] MEDS: NAMENDA TAB 10 MG PO SCH ×2 (12:45→22:46)
[2018-08-19] MEDS: COLACE CAP 100 MG PO SCH (12:46)
[2018-08-19] MEDS: NS 1/2 1000 ML IV 1,000 ML IV SCH (12:46)
[2018-08-19] MEDS: FOLIC ACID TAB 1 MG PO SCH (12:46)
[2018-08-19] MEDS: VITAMIN B-12 PO SCH (12:50)
[2018-08-19] MEDS: PHOSLO CAP 667 MG PO SCH ×2 (13:06→22:46)
[2018-08-19] MEDS: RENAGEL PO SCH ×2 (13:06→22:46)
[2018-08-19 13:27] LABS: ABG BASE EXCESS 6.2 mmol/L (-2.0-2.0)
[2018-08-19 13:28] LABS: ABG HCO3 34.9 mmol/L (22-26)
[2018-08-19] MEDS: DUONEB 0.5 MG/3 MG NEB SCH ×3 (16:15→21:00)
[2018-08-19] MEDS ORDERED: VISTARIL PO PRN (16:33)
[2018-08-19 16:52] LABS: CKMB % 0.5 % (<4); TROPONIN I 0.47 ng/mL (0-1.5)
[2018-08-19] MEDS ORDERED: VISTARIL PO ONE (16:53)
[2018-08-19 17:07] LABS: CREATINE KINASE MB 4.4 ng/mL (0-4.0)
[2018-08-19 22:41] LABS: CKMB % 0.4 % (<4); CREATINE KINASE MB 3.5 ng/mL (0-4.0); TROPONIN I 0.57 ng/mL (0-1.5)
[2018-08-19] MEDS: NEURONTIN CAP 100 MG PO SCH (22:45)
[2018-08-19] MEDS: LOPRESSOR TAB 25 MG PO SCH (22:46)
[2018-08-19] MEDS: SNACK - Diabetic Appropriate PO SCH (22:47)
[2018-08-19] MEDS: SENSIPAR PO SCH (22:48)
[2018-08-20] MEDS: DUONEB 0.5 MG/3 MG NEB SCH ×6 (00:50→20:27)
[2018-08-20] MEDS ORDERED: NS 1/2 1000 ML IV 1,000 ML IV ONE (02:21)
[2018-08-20] MEDS: NS 1/2 1000 ML IV 1,000 ML IV SCH ×2 (02:34→16:42)
[2018-08-20] MEDS: NORCO 7.5/325 MG TAB PO SCH ×4 (03:34→21:18)
[2018-08-20 07:03] LABS: ALBUMIN 2.7 g/dL (3.4-5.0); CALCIUM 9.7 mg/dL (8.5-10.1); CARBON DIOXIDE 28.8 mmol/L (21-32); COR CA(FOR HYPOALB) 10.7 mg/dL (8.5-10.1); CREATININE 7.09 mg/dL (0.55-1.02); TOTAL PROTEIN 7.5 g/dL (6.4-8.2)
[2018-08-20 07:10] LABS: BASOPHILS # (AUTO) 0.1 X10^3/uL (0.0-0.1); EOSINOPHILS # (AUTO) 0.1 x10^3/uL (0.0-0.2); EOSINOPHILS % (AUTO) 0.7 % (0.9-2.9); HEMOGLOBIN 9.7 g/dL (12.0-16.0); LYMPHOCYTES # (AUTO) 0.9 X10^3/uL (1.3-2.9); MEAN CORPUSCULAR HEMOGLOBIN 26.9 pg (27.0-34.0); MEAN CORPUSCULAR HGB CONC 30.4 g/dL (33.0-35.0); MEAN CORPUSCULAR VOLUME 88.5 fL (80.0-100.0); MEAN PLATELET VOLUME 9.1 fL (7.4-11.0); MONOCYTES # (AUTO) 0.9 x10^3/uL (0.3-0.8); MONOCYTES % (AUTO) 7.9 % (0.0-13.0); NEUTROPHILS # (AUTO) 9.5 x10^3/uL (2.2-4.8); NEUTROPHILS % (AUTO) 82.4 % (42.0-75.0); PLATELET COUNT 238 X10^3/uL (150.0-450.0); RED BLOOD COUNT 3.62 X10^6/uL (3.5-5.4); RED CELL DISTRIBUTION WIDTH 16.4 % (11.6-16.5); WHITE BLOOD COUNT 11.6 X10^3/uL (3.6-10.0)
[2018-08-20] MEDS: PHOSLO CAP 667 MG PO SCH ×3 (07:12→21:19)
[2018-08-20] MEDS: RENAGEL PO SCH ×3 (07:12→21:19)
--- NOTE | 2018-08-20 08:57 | DR.H&P ---
H&P - History & Physical for Day of: H&P Date: 08/19/18 - Chief Complaint Chief Complaint: SOB, AMS - History of Present Illness History of Present Illness: 67 WF RESIDENT OF [facility], ER ADMISSION AFTER PRESENTING WITH AMS, SOB. PT HAS PMH OF ESRD ON DIAYLSIS MWF, HTN, OA, COPD, CAD, PAD. PT HAD RIGHT FOOT PARTIAL AMPUTATION ON 08/[address] ALEXIS IN [place], CURRENTLY ON VANCOMYCIN 3X PER WEEK AT DIALYSIS. PT HAD PNEUMONIA ON HER CHEST XRAY ON ADMISSION, HYPOXIA ON ABG. PT ADMITTED FOR TREATMENT OF AMS DUE TO RESP DISTRESS AND PNEUMONIA. - Past Medical History Past Medical History: Coronary Artery Disease, Hypertension, Diabetes, Renal Disease, Dialysis, Schizophrenia, Dementia, GERD, Arthritis, CHF - Past Surgical History Surgical History: Angioplasty/Stents, Hysterectomy - Family History Family Medical History: Diabetes Mellitus, Cancer, SD, Hypertension - Social History Does patient currently use any type of tobacco product: No Have you used tobacco products in the last 12 months: No Type of Tobacco Use: None Does any household member use tobacco: No Alcohol Use: None Drug Use: None - Medications Home Medications: No Known Drug Allergies Allergy (Verified 10/18/17 18:52) CONTINUE taking the following medications acetaminophen [Tylenol] 650 mg PO Q6H PRN 08/19/18 [History] albuterol sulfate 1 inh INHALATION PRN PRN 08/19/18 [History] ascorbic acid (vitamin C) [Vitamin C] 500 mg PO BID 08/19/18 [History] clopidogrel [Plavix] 75 mg PO DAILY 08/19/18 [History] hydrocodone-acetaminophen [Leivasy] 7.5 mg PO Q6H PRN 08/19/18 [History] metoprolol tartrate 25 mg PO DAILY 08/19/18 [History] multivitamin 1 tab PO DAILY 08/19/18 [History] zinc 50 mg PO DAILY 08/19/18 [History] - Review of Systems Constitutional: Weakness, Malaise Eyes: No Symptoms Reported ENT: No Symptoms Reported Respiratory: Cough, Shortness of Breath, Wheezing Cardiovascular: Edema Gastrointestinal: Nausea Genitourinary: No Symptoms Reported Musculoskeletal: No Symptoms Reported Skin: No Symptoms Reported Neurological: Weakness - Physical Exam Vital Signs: Temperature 98.5 F Pulse Rate [Left Brachial] 80 Pulse Rate 83 Respiratory Rate 18 Blood Pressure [Left Arm] 92/50 Blood Pressure [Sitting] 118/65 Blood Pressure [Lying] 108/50 Blood Pressure 101/53 O2 Sat by Pulse Oximetry 96 Oriented: Person. negative: Time, Place Eyes: Normal Ear: Normal Nose: Normal Throat: Dry Respiratory: Wheezes Throughout, RLL Diminished, LLL Diminished Cardiovascular: Normal : Normal Auscultation: Bowel Sounds: Normal Palpation: Normal Tenderness: Normal Skin: Wound (RIGHT FOOT) Musculoskeletal: Right, Left, Leg, Deformity (PARTIAL AMPUTATION TO RIGHT FOOT), Motor Deficit, Sensory Deficit Psychiatric: Anxiety Affect: Anxious Speech Pattern: Clear, Appropriate - Assessment/Plan (1) Pneumonia Status: Acute Plan: ADMIT, PNEUMONIA PROTOCOL. SPUTUM, AM LABS. CXR ON ADMISSION, RESP THERAPY, SUPPLEMENTAL O2. REPEAT ABG, BIPAP PRN. IV ATBX RENAL DOSE LEVAQUIN. VERIFY HOME MEDICATION, WOUND CARE TO R FOOT ORDERED (2) Wound of right foot Status: Acute (3) SOB (shortness of breath) Status: Acute (4) Hypertension Status: Chronic (5) CHF (congestive heart failure) Qualifiers: Heart failure type: unspecified Heart failure chronicity: chronic Qualified Code(s): I50.9 - Heart failure, unspecified Status: Chronic (6) Chronic renal disease, stage 5, glomerular filtration rate (GFR) less than or equal to 15 mL/min/1.73 square meter Status: Chronic - Allergies Allergies/Adverse Reactions: Allergies Allergy/AdvReac Type Severity Reaction Status Date / Time No Known Drug Allergies Allergy Verified 10/18/17 18:52
--- NOTE | 2018-08-20 09:18 | PCM.PROG ---
Progress Note - Progress Note for Day of Date of Exam: 08/20/18 - Subjective Subjective: 67 BF ER ADMISSION WITH AMS, RESP DISTRESS AND PNEUMONIA. PT HAS HX ESRF ON DIALYSIS MWF. PT HAS WOUND TO RIGHT FOOT S/P PARTIAL AMPUTATION ON 08/[address] ALEXIS IN [place] ON VANCOMYCIN THREE TIMES PER WEEK. PT IS CURRENTLY ON PNEUMONIA PROTOCOL WITH LEVAQUIN 500MG Q 49HRS RENAL DOSE. PT CO PAIN ALL OVER. PT CONTINUES WITH CHEST CONGESTION AND SOB. PT UNABLE TO COLLECT SPUTUM. - Past Medical Family Social History Past Med/Fam/Surg Hx: No changes since H&P Allergies: Allergies No Known Drug Allergies Allergy (Verified 10/18/17 18:52) - Review of Systems ROS: No change since H&P - Vital Signs and I&O's Vital Signs: Temperature 98.5 F Pulse Rate [Left Brachial] 80 Pulse Rate 83 Respiratory Rate 18 Blood Pressure [Left Arm] 92/50 Blood Pressure [Sitting] 118/65 Blood Pressure [Lying] 108/50 Blood Pressure 101/53 O2 Sat by Pulse Oximetry 96 Intake and Output: Intake & Output 08/17/18 08/18/18 08/19/18 08/20/18 11:59 11:59 11:59 11:59 Intake Total 1228 / 1228 Output Total 0 / 0 Balance 1228 / 1228 - Physical Exam Oriented: Person. negative: Time, Place Eyes: Normal Ear: Normal Nose: Normal Throat: Dry Respiratory: Diminished, Rhonchi Cardiovascular: Normal : Normal Auscultation: Bowel Sounds: Normal Tenderness: Normal Skin: Wound (RIGHT FOOT) Musculoskeletal: Right, Left, Leg, Deformity (PARTIAL AMPUTATION TO RIGHT FOOT), Motor Deficit, Sensory Deficit Psychiatric: Anxiety Affect: Anxious Speech Pattern: Clear, Appropriate - Laboratory and Diagnostics Result Diagrams: 08/20/18 06:12 08/20/18 06:12 Labs: Laboratory WBC 11.6 X10^3/uL (3.6-10.0) H 08/20/18 06:12 RBC 3.62 X10^6/uL (3.5-5.4) 08/20/18 06:12 Hgb 9.7 g/dL (12.0-16.0) L 08/20/18 06:12 Hct 32.0 % (36.0-47.0) L 08/20/18 06:12 MCV 88.5 fL (80.0-100.0) 08/20/18 06:12 MCH 26.9 pg (27.0-34.0) L 08/20/18 06:12 MCHC 30.4 g/dL (33.0-35.0) L 08/20/18 06:12 RDW 16.4 % (11.6-16.5) 08/20/18 06:12 Plt Count 238 X10^3/uL (150.0-450.0) 08/20/18 06:12 MPV 9.1 fL (7.4-11.0) 08/20/18 06:12 Neut % (Auto) 82.4 % (42.0-75.0) H 08/20/18 06:12 Lymph % (Auto) 8.0 % (21.0-51.0) L 08/20/18 06:12 [place] % (Auto) 7.9 % (0.0-13.0) 08/20/18 06:12 Eos % (Auto) 0.7 % (0.9-2.9) L 08/20/18 06:12 Baso % (Auto) 1.0 % (0.2-1.0) 08/20/18 06:12 Neut # (Auto) 9.5 x10^3/uL (2.2-4.8) H 08/20/18 06:12 Lymph # (Auto) 0.9 X10^3/uL (1.3-2.9) L 08/20/18 06:12 [place] # (Auto) 0.9 x10^3/uL (0.3-0.8) H 08/20/18 06:12 Eos # (Auto) 0.1 x10^3/uL (0.0-0.2) 08/20/18 06:12 Baso # (Auto) 0.1 X10^3/uL (0.0-0.1) 08/20/18 06:12 Absolute Nucleated RBC 0.3 /100WBC 08/20/18 06:12 Sample Site Lb 08/19/18 13:22 ABG pH 7.300 (7.35-7.45) L 08/19/18 13:22 ABG pCO2 71.0 mmHg (35.0-45.0) H* 08/19/18 13:22 ABG pO2 59.0 mmHg (80.0-100.0) L 08/19/18 13:22 ABG HCO3 34.9 mmol/L (22-26) H* 08/19/18 13:22 ABG O2 Saturation 87.0 % (90-100) L 08/19/18 13:22 ABG Base Excess 6.2 mmol/L (-2.0-2.0) H 08/19/18 13:22 Kartik Test N/a 08/19/18 13:22 A-a Gradient 102.0 mmHg 08/19/18 13:22 FiO2 35.0 08/19/18 13:22 Blood Gas Comments Pt zina wel. cdn 08/19/18 13:22 Sodium 135 mmol/L (136-145) L 08/20/18 06:12 Corrected Sodium 136 mmol/L (136-145) 08/20/18 06:12 Potassium 4.6 mmol/L (3.5-5.1) 08/20/18 06:12 Chloride 95 mmol/L (98-107) L 08/20/18 06:12 Carbon Dioxide 28.8 mmol/L (21-32) 08/20/18 06:12 BUN 37 mg/dL (7-18) H 08/20/18 06:12 Creatinine 7.09 mg/dL (0.55-1.02) H 08/20/18 06:12 Est GFR (MDRD) Af Amer 7 (>60) L 08/20/18 06:12 Est GFR (MDRD) Non-Af 6 (>60) L 08/20/18 06:12 Glucose 144 mg/dL (65-99) H 08/20/18 06:12 POC Glucose (mg/dL) 151 mg/dL (65-99) H 08/20/18 06:26 Calcium 9.7 mg/dL (8.5-10.1) 08/20/18 06:12 Corrected Calcium 10.7 mg/dL (8.5-10.1) H 08/20/18 06:12 Total Bilirubin 0.30 mg/dL (0.2-1.0) 08/20/18 06:12 AST 38 Units/L (15-37) H 08/20/18 06:12 ALT 11 Units/L (12-78) L 08/20/18 06:12 Alkaline Phosphatase 73 Units/L (46-116) 08/20/18 06:12 Creatine Kinase 888 Units/L (26-192) H 08/19/18 22:10 CK-MB (CK-2) 3.5 ng/mL (0-4.0) 08/19/18 22:10 CK/CKMB % Calc 0.4 % (<4) 08/19/18 22:10 Troponin I 0.57 ng/mL (0-1.5) 08/19/18 22:10 C-Reactive Protein 267.60 mg/L (0-3.0) H 08/19/18 09:45 Total Protein 7.5 g/dL (6.4-8.2) 08/20/18 06:12 Albumin 2.7 g/dL (3.4-5.0) L 08/20/18 06:12 Globulin 4.8 g/dL (2.5-4.5) H 08/20/18 06:12 Albumin/Globulin Ratio 0.6 Ratio (1.1-2.1) L 08/20/18 06:12 - Plan (1) Pneumonia Status: Acute Plan: CONTINUE PNEUMONIA PROTOCOL. CONTINUE DIALYSIS MWF. BLOOD CUTLURES, ENCOURAGE SPUTUM PRODUCTION. SPUTUM, AM LABS. CXR ON ADMISSION, RESP THERAPY, SUPPLEMENTAL O2. REPEAT ABG, BIPAP PRN. IV ATBX RENAL DOSE LEVAQUIN. VERIFY HOME MEDICATION, WOUND CARE TO R FOOT ORDERED (2) Wound of right foot Status: Acute (3) SOB (shortness of breath) Status: Acute (4) Hypertension Status: Chronic (5) CHF (congestive heart failure) Status: Chronic Qualifiers: Heart failure type: unspecified Heart failure chronicity: chronic Qualified Code(s): I50.9 - Heart failure, unspecified (6) Chronic renal disease, stage 5, glomerular filtration rate (GFR) less than or equal to 15 mL/min/1.73 square meter Status: Chronic
[2018-08-20 09:56] LABS: ABG BASE EXCESS 6.3 mmol/L (-2.0-2.0)
[2018-08-20 09:57] LABS: ABG ALLEN TEST POS
[2018-08-20] MEDS: ZINC SULFATE PO SCH (10:12)
[2018-08-20] MEDS: COLACE CAP 100 MG PO SCH (10:13)
[2018-08-20] MEDS: FOLIC ACID TAB 1 MG PO SCH (10:13)
[2018-08-20] MEDS: ROBITUSSIN DM PO SCH ×4 (10:13→21:19)
[2018-08-20] MEDS: PLAVIX PO SCH (10:14)
[2018-08-20] MEDS: NEURONTIN CAP 100 MG PO SCH ×2 (10:14→21:19)
[2018-08-20] MEDS: PROTONIX TAB 40 MG PO SCH (10:14)
[2018-08-20] MEDS: LOPRESSOR TAB 25 MG PO SCH ×2 (10:15→23:54)
[2018-08-20] MEDS: TAB-A-VITE PO SCH (10:15)
[2018-08-20] MEDS: NAMENDA TAB 10 MG PO SCH ×2 (10:15→21:19)
[2018-08-20] MEDS: LASIX PO SCH (10:15)
[2018-08-20] MEDS: XANAX PO SCH (10:15)
[2018-08-20] MEDS: VITAMIN B-12 PO SCH (10:16)
[2018-08-20] MEDS: LEVAQUIN PREMIX IV 500 MG 500 MG/100 ML BAG IV SCH ×2 (18:22→18:51)
[2018-08-20] MEDS: SNACK - Diabetic Appropriate PO SCH (21:19)
[2018-08-20] MEDS: SENSIPAR PO SCH (22:20)
[2018-08-21] MEDS: DUONEB 0.5 MG/3 MG NEB SCH ×6 (01:03→20:44)
[2018-08-21] MEDS: NORCO 7.5/325 MG TAB PO SCH ×3 (04:37→16:03)
[2018-08-21] MEDS: PHOSLO CAP 667 MG PO SCH ×3 (05:38→21:38)
[2018-08-21] MEDS: RENAGEL PO SCH ×3 (05:38→21:37)
[2018-08-21 07:18] LABS: BASOPHILS % (AUTO) 0.3 % (0.2-1.0); EOSINOPHILS % (AUTO) 0.3 % (0.9-2.9); HEMATOCRIT 31.5 % (36.0-47.0); HEMOGLOBIN 9.5 g/dL (12.0-16.0); LYMPHOCYTES # (AUTO) 0.8 X10^3/uL (1.3-2.9); LYMPHOCYTES % (AUTO) 6.9 % (21.0-51.0); MEAN CORPUSCULAR HEMOGLOBIN 27.1 pg (27.0-34.0); MEAN CORPUSCULAR HGB CONC 30.3 g/dL (33.0-35.0); MEAN CORPUSCULAR VOLUME 89.5 fL (80.0-100.0); MEAN PLATELET VOLUME 9.3 fL (7.4-11.0); MONOCYTES # (AUTO) 0.9 x10^3/uL (0.3-0.8); MONOCYTES % (AUTO) 7.8 % (0.0-13.0); NEUTROPHILS # (AUTO) 9.4 x10^3/uL (2.2-4.8); NEUTROPHILS % (AUTO) 84.7 % (42.0-75.0); PLATELET COUNT 206 X10^3/uL (150.0-450.0); RED BLOOD COUNT 3.52 X10^6/uL (3.5-5.4); RED CELL DISTRIBUTION WIDTH 16.6 % (11.6-16.5); WHITE BLOOD COUNT 11.1 X10^3/uL (3.6-10.0)
[2018-08-21 07:24] LABS: ALBUMIN 2.6 g/dL (3.4-5.0); CALCIUM 8.8 mg/dL (8.5-10.1); CARBON DIOXIDE 29.9 mmol/L (21-32); COR CA(FOR HYPOALB) 9.9 mg/dL (8.5-10.1); CREATININE 5.45 mg/dL (0.55-1.02); TOTAL PROTEIN 7.6 g/dL (6.4-8.2)
--- NOTE | 2018-08-21 07:41 | RAD ---
HISTORY: Shortness of breath Study: Chest AP portable Comparison: 08/19/2018 Findings: Patient is rotated to the left. The heart remains enlarged. No definite acute alveolar infiltrates are identified. Mild interstitial lung changes are present. Hypo inflation is present. No pleural effusions are identified. The bony thorax is unremarkable. IMPRESSION: Moderate cardiomegaly without definite congestive heart failure No acute alveolar infiltrates Interstitial lung changes likely chronic Reported By:
[2018-08-21] MEDS: TAB-A-VITE PO SCH (08:49)
[2018-08-21] MEDS: NEURONTIN CAP 100 MG PO SCH ×3 (08:49→21:37)
[2018-08-21] MEDS: XANAX PO SCH (08:49)
[2018-08-21] MEDS: PROTONIX TAB 40 MG PO SCH (08:49)
[2018-08-21] MEDS: LASIX PO SCH ×2 (08:50→08:55)
[2018-08-21] MEDS: FOLIC ACID TAB 1 MG PO SCH (08:50)
[2018-08-21] MEDS: NAMENDA TAB 10 MG PO SCH ×3 (08:50→21:37)
[2018-08-21] MEDS: COLACE CAP 100 MG PO SCH (08:50)
[2018-08-21] MEDS: PLAVIX PO SCH ×2 (08:50→08:55)
[2018-08-21] MEDS: VITAMIN B-12 PO SCH (08:51)
[2018-08-21] MEDS: ROBITUSSIN DM PO SCH ×3 (08:51→16:52)
[2018-08-21] MEDS: LOPRESSOR TAB 25 MG PO SCH ×2 (08:54→21:36)
[2018-08-21] MEDS: ZINC SULFATE PO SCH (08:55)
[2018-08-21] MEDS ORDERED: NS 1/2 1000 ML IV 1,000 ML IV ONE (19:34)
[2018-08-21] MEDS: NS 1/2 1000 ML IV 1,000 ML IV SCH (21:36)
[2018-08-21] MEDS: SNACK - Diabetic Appropriate PO SCH (21:36)
[2018-08-21] MEDS: SENSIPAR PO SCH (21:38)
[2018-08-21] MEDS ORDERED: NS 1000 ML 1,000 ML IV ONE ×2 (21:48→23:25)
[2018-08-21] MEDS ORDERED: NS 1000 ML 1,000 ML ONE (21:53)
[2018-08-21] MEDS ORDERED: DOPAMINE IV PREMIX 400 MG/250 ML 400 MG/250 ML BAG IV PRN (23:26)
[2018-08-22] MEDS: NORCO 7.5/325 MG TAB PO SCH ×4 (00:05→14:23)
[2018-08-22] MEDS: ROBITUSSIN DM PO SCH ×3 (00:55→13:55)
[2018-08-22] MEDS: DUONEB 0.5 MG/3 MG NEB SCH ×4 (01:15→12:43)
[2018-08-22 02:06] LABS: ABG BASE EXCESS -1.4 mmol/L (-2.0-2.0); ABG HCO3 28.7 mmol/L (22-26)
[2018-08-22 02:09] LABS: ABG ALLEN TEST POS
[2018-08-22 04:35] LABS: ABG HCO3 29.6 mmol/L (22-26)
[2018-08-22 04:36] LABS: ABG ALLEN TEST POS
[2018-08-22] MEDS: PHOSLO CAP 667 MG PO SCH ×2 (05:42→13:55)
[2018-08-22] MEDS: RENAGEL PO SCH ×2 (05:43→13:42)
[2018-08-22 06:45] LABS: ALBUMIN 2.8 g/dL (3.4-5.0); CALCIUM 9.3 mg/dL (8.5-10.1); CARBON DIOXIDE 26.8 mmol/L (21-32); COR CA(FOR HYPOALB) 10.3 mg/dL (8.5-10.1); CREATININE 6.32 mg/dL (0.55-1.02); TOTAL PROTEIN 8.1 g/dL (6.4-8.2)
[2018-08-22 08:37] LABS: ABG BASE EXCESS 1.4 mmol/L (-2.0-2.0)
[2018-08-22 08:39] LABS: ABG HCO3 30.1 mmol/L (22-26)
[2018-08-22 08:46] LABS: BASOPHILS # (AUTO) 0.1 X10^3/uL (0.0-0.1); BASOPHILS % (AUTO) 0.5 % (0.2-1.0); EOSINOPHILS % (AUTO) 0.2 % (0.9-2.9); HEMATOCRIT 31.7 % (36.0-47.0); HEMOGLOBIN 9.5 g/dL (12.0-16.0); LYMPHOCYTES # (AUTO) 0.6 X10^3/uL (1.3-2.9); LYMPHOCYTES % (AUTO) 5.2 % (21.0-51.0); MEAN CORPUSCULAR HEMOGLOBIN 26.8 pg (27.0-34.0); MEAN CORPUSCULAR VOLUME 89.5 fL (80.0-100.0); MEAN PLATELET VOLUME 8.5 fL (7.4-11.0); MONOCYTES # (AUTO) 0.9 x10^3/uL (0.3-0.8); MONOCYTES % (AUTO) 7.1 % (0.0-13.0); NEUTROPHILS # (AUTO) 10.5 x10^3/uL (2.2-4.8); PLATELET COUNT 213 X10^3/uL (150.0-450.0); RED BLOOD COUNT 3.55 X10^6/uL (3.5-5.4); RED CELL DISTRIBUTION WIDTH 16.7 % (11.6-16.5); WHITE BLOOD COUNT 12.1 X10^3/uL (3.6-10.0)
[2018-08-22] MEDS: COLACE CAP 100 MG PO SCH (09:03)
[2018-08-22] MEDS: TAB-A-VITE PO SCH (09:04)
[2018-08-22] MEDS: XANAX PO SCH (09:05)
[2018-08-22] MEDS: VITAMIN B-12 PO SCH (09:05)
[2018-08-22] MEDS: FOLIC ACID TAB 1 MG PO SCH (09:05)
[2018-08-22] MEDS: PROTONIX TAB 40 MG PO SCH (09:06)
[2018-08-22] MEDS: NEURONTIN CAP 100 MG PO SCH (09:06)
[2018-08-22] MEDS: LASIX PO SCH (09:06)
[2018-08-22] MEDS: LOPRESSOR TAB 25 MG PO SCH (09:06)
[2018-08-22] MEDS: ZINC SULFATE PO SCH (09:06)
[2018-08-22] MEDS: NAMENDA TAB 10 MG PO SCH (09:12)
[2018-08-22] MEDS: PLAVIX PO SCH (09:12)
[2018-08-22] MEDS: NS 1/2 1000 ML IV 1,000 ML IV SCH (11:13)
[2018-08-22 11:24] LABS: ABG BASE EXCESS 0.3 mmol/L (-2.0-2.0); ABG HCO3 28.7 mmol/L (22-26)
[2018-08-22] MEDS ORDERED: Atrovent NEB TX 0.02% NEB PRN (11:47)
[2018-08-22] MEDS ORDERED: PROVENTIL NEB TX 0.083% 2.5MG/ 3ML NEB PRN (11:47)
--- NOTE | 2018-08-22 12:27 | RAD ---
HISTORY: Follow-up pneumonia Study: Chest AP portable Comparison: 08/21/2016 Findings: The heart remains enlarged. No congestive heart failure is noted. No acute alveolar infiltrates or pleural effusions are identified. Chronic interstitial lung changes are present. IMPRESSION: No significant change from the prior examination Reported By:
[2018-08-22] MEDS: LEVAQUIN PREMIX IV 500 MG 500 MG/100 ML BAG IV SCH (13:52)
[2018-08-22 14:03] VITALS: BP 109/57
== END 2018-08-22 15:10 | disposition short-term general hospital (02) | DRG 194 ==
LOC: MED/SURG 09:00 → ER 09:00 → MED/SURG 11:59 → ICU 08-21 23:08
PROVIDERS: ADMIT Internal Medicine; ATTEND Internal Medicine
DX: R06.02 Shortness of breath; I50.9 Heart failure, unspecified; Z99.2 Dependence on renal dialysis; J18.8 Other pneumonia, unspecified organism; R79.82 Elevated C-reactive protein (CRP); I25.10 Atherosclerotic heart disease of native coronary artery without angina pectoris; R41.82 Altered mental status, unspecified; R94.31 Abnormal electrocardiogram [ECG] [EKG]; N18.5 Chronic kidney disease, stage 5; R26.89 Other abnormalities of gait and mobility; K21.9 Gastro-esophageal reflux disease without esophagitis; Z89.431 Acquired absence of right foot; E11.65 Type 2 diabetes mellitus with hyperglycemia; R06.03 Acute respiratory distress
CPT/HCPCS: 36415; 36600; 70450; 71010; 71045; 80053; 82550; 82553; 82803; 83605; 84484; 85025; 86140; 87040; 93005; 93010; 94640; 94660; 94760; 96365; 96367; 96374; 97163; 97166; 99283; 99284; A4222; A4618; A7030; Q0177; G0378; J1265; J1815; J1956; J7030; J7613; J7620